=== PATIENT | female | born 1970 ===

== ENCOUNTER 2020-04-30 13:40 | Outpatient (REF) | payer OTHER, SELFPAY | END 2020-04-30 13:41 | disposition home or self-care (01) | LOC: HO.LAB 13:40 | PROVIDERS: Visit Provider Internal Medicine | DX: Z20.828 Contact with and (suspected) exposure to other viral communicable diseases (principal) | CPT/HCPCS: 87635 ==

== ENCOUNTER 2020-05-07 12:45 | Outpatient (REF) | payer OTHER, SELFPAY | END 2020-05-07 12:46 | disposition home or self-care (01) | LOC: HO.LAB 12:45 | PROVIDERS: Visit Provider Internal Medicine | DX: Z20.828 Contact with and (suspected) exposure to other viral communicable diseases (principal) | CPT/HCPCS: U0003 ==

== ENCOUNTER 2020-07-16 13:52 | Outpatient (REF) | payer OTHER, SELFPAY | END 2020-07-16 13:53 | disposition home or self-care (01) | LOC: HO.LAB 13:52 | PROVIDERS: Visit Provider Internal Medicine | DX: Z20.822 Contact with and (suspected) exposure to COVID-19 (principal) | CPT/HCPCS: 36415; C9803; U0003 ==

== ENCOUNTER 2020-08-13 10:16 | Outpatient (REF) | payer OTHER, SELFPAY ==
[2020-08-13 11:13] LABS: MANUAL DIFF FLAG NO
[2020-08-13 11:25] LABS: Basophils Absolute Auto 0.1 X10*3/uL (0.0-0.2); Basophils Percent Auto 0.6 % (0-2); Eosinophils Absolute Auto 0.2 X10*3/uL (0.0-0.4); Eosinophils Percent Auto 2.2 % (0-4); Hematocrit 46.6 % (37-47); Hemoglobin 14.6 g/dl (12.0-16.0); Imm Gran Abs Auto 0.02 X10*3/uL (0.00-0.03); Imm Gran Pct Auto 0.3 % (0.0-0.4); Lymphocytes Absolute Auto 1.9 X10*3/uL (1.2-4.9); Lymphocytes Percent Auto 24.1 % (20-40); Mean Corpuscular HGB Conc 31.3 g/dl (31.0-35.0); Mean Corpuscular Volume 89.3 fL (80-98); Mean Platelet Volume 10.7 fL (9.4-12.3); Monocytes Absolute Auto 0.7 X10*3/uL (0.1-1.2); Monocytes Percent Auto 9.1 % (2-11); Neutrophils Percent Auto 63.7 % (45-73); Platelet Count 290 X10*3/uL (160-400); Red Blood Count 5.22 X10*6/uL (4.20-5.50); Red Cell Distribution Width 13.7 % (11.0-16.0); White Blood Count 7.9 X10*3/uL (4.8-10.8)
[2020-08-13 11:37] LABS: Estimated Average Glucose 108 mg/dL; Hemoglobin A1c % 5.4 %
[2020-08-13 11:59] LABS: Alanine Aminotransferase 33 U/L (0-31); Albumin Level 4.3 g/dL (3.5-5.0); Alkaline Phosphatase 83 U/L (39-117); Anion Gap 13 (12-20); Aspartate Amino Transferase 23 U/L (5-31); Bilirubin Direct 0.2 mg/dL (0.0-0.5); Bilirubin Total 0.3 mg/dL (0.0-1.0); Blood Urea Nitrogen 18 mg/dL (9-16); Calcium 9.8 mg/dL (8.4-10.2); Carbon Dioxide 29 mmol/L (22-29); Chloride 104 mmol/L (96-108); Estimated Glomerular Filt Rate > 60; Glucose Random 90 mg/dL (60-115); Sodium 141 mmol/L (135-145); Total Protein 7.6 g/dL (6.5-8.0)
[2020-08-13 12:07] LABS: Ferritin 176 ng/mL (10-250); TSH reflex Free T4 0.85 uIU/mL (0.32-4.0)
[2020-08-13 12:28] LABS: Vitamin B12 348 pg/mL (200-900)
[2020-08-14 08:43] LABS: LDL Cholesterol Direct 61 mg/dL (<100)
[2020-08-17 22:32] LABS: Vitamin D 25-OH, D2 30 ng/mL; Vitamin D 25-OH, D3 17 ng/mL; Vitamin D 25-OH, Total 47 ng/mL (30-100)
== END 2020-08-13 10:17 | disposition home or self-care (01) ==
LOC: HO.HMGCLDS 10:16
PROVIDERS: PCP Internal Medicine; Visit Provider Internal Medicine
DX: L65.9 Nonscarring hair loss, unspecified (principal); D64.9 Anemia, unspecified; L30.9 Dermatitis, unspecified; R73.01 Impaired fasting glucose; K59.01 Slow transit constipation; I10 Essential (primary) hypertension; E03.2 Hypothyroidism due to medicaments and other exogenous substances; T50.905A Adverse effect of unspecified drugs, medicaments and biological substances, initial encounter; Y92.9 Unspecified place or not applicable; Z91.09 Other allergy status, other than to drugs and biological substances
CPT/HCPCS: 36415; 80048; 80076; 82306; 82607; 82728; 83036; 83721; 84443; 85025

== ENCOUNTER 2020-11-13 09:56 | Outpatient (REF) | payer OTHER, SELFPAY ==
[2020-11-14 01:30] LABS: CT PCR NOT DETECTED (Not Detect.); NG PCR NOT DETECTED (Not Detect.)
== END 2020-11-13 09:57 | disposition home or self-care (01) ==
LOC: HO.LAB 09:56
PROVIDERS: PCP Internal Medicine; Visit Provider Advanced Practice Midwife
DX: Z01.419 Encounter for gynecological examination (general) (routine) without abnormal findings (principal); Z11.3 Encounter for screening for infections with a predominantly sexual mode of transmission; N95.1 Menopausal and female climacteric states; N93.0 Postcoital and contact bleeding; N85.2 Hypertrophy of uterus; N95.2 Postmenopausal atrophic vaginitis; Z20.2 Contact with and (suspected) exposure to infections with a predominantly sexual mode of transmission
CPT/HCPCS: 87491; 87591

== ENCOUNTER 2020-11-27 10:52 | Outpatient (REF) | payer OTHER, SELFPAY ==
--- NOTE | ~2020-11-27 | US_ITS ---
EXAMINATION: PELVIC ULTRASOUND CLINICAL INFORMATION: Enlarged uterus COMPARISON: Previous CT of the abdomen and pelvis December 2010 TECHNIQUE: Transabdominal and transvaginal pelvic ultrasound was performed. Transvaginal exam was performed for better visualization of the uterus and ovaries. FINDINGS: The uterus is anteverted and measures 8.6 x 3.6 x 4.9 cm in dimension. There is a 2.3 x 1.5 x 2.1 cm hypoechoic lesion in the anterior uterine fundus suggestive of a fibroid. Endometrial thickness measures 7 mm. There is a heterogeneous slightly hyperechoic area in the endometrium with central feeding vessel questionable for an endometrial polyp. This measures 8 x 5 x 8 mm. The right ovary is enlarged and measures 9.6 x 6.7 x 7.2 cm. There is a 9.4 x 6.5 x 5.3 cm simple-appearing right ovarian cyst. This measured 3.8 x 6.6 x 6.5 cm in dimension on December 2010 CT scan and is slightly increased in size. The left ovary is normal-appearing and measures 1.9 x 0.9 x 1.4 cm. There is no fluid in the pelvis. US/US pelvic and transvaginal IMPRESSION: Small fundal uterine fibroid. Heterogeneous endometrium questionable for an endometrial polyp. Endometrial thickness measures 7 mm which is slightly thickened for a postmenopausal patient. 9.4 x 6.5 x 5.3 cm simple-appearing right ovarian cyst increased from previous CT scan of the abdomen and pelvis December 2010.
== END 2020-11-27 10:53 | disposition home or self-care (01) ==
LOC: HO.US 10:52
PROVIDERS: Visit Provider Advanced Practice Midwife
DX: N85.2 Hypertrophy of uterus (principal); N93.0 Postcoital and contact bleeding; N95.2 Postmenopausal atrophic vaginitis
CPT/HCPCS: 76830; 76856

== ENCOUNTER → 2020-12-18 11:33 | Outpatient (BNVA) | payer OTHER, SELFPAY | PROVIDERS: PCP Internal Medicine; Visit Provider Advanced Practice Midwife ==

== ENCOUNTER 2020-12-23 11:43 | Outpatient (REF) | payer OTHER, SELFPAY ==
[2020-12-24 09:36] LABS: CA-125 5 U/mL (<35)
== END 2020-12-23 11:44 | disposition home or self-care (01) ==
LOC: HO.LAB 11:43
PROVIDERS: Absent Provider Advanced Practice Midwife; PCP Internal Medicine; Visit Provider Obstetrics & Gynecology
DX: N83.201 Unspecified ovarian cyst, right side (principal); N84.0 Polyp of corpus uteri; D25.9 Leiomyoma of uterus, unspecified
CPT/HCPCS: 36415; 86304

== ENCOUNTER → 2020-12-27 11:05 | Outpatient (BNVA) | payer OTHER, SELFPAY | PROVIDERS: PCP Internal Medicine; Visit Provider Obstetrics & Gynecology ==

== ENCOUNTER 2021-02-11 06:19 | Outpatient (REF) | payer OTHER, SELFPAY ==
[2021-02-11 07:33] LABS: Alanine Aminotransferase 27 U/L (0-31); Alkaline Phosphatase 81 U/L (39-117); Anion Gap 11 (12-20); Aspartate Amino Transferase 21 U/L (5-31); Bilirubin Total 0.5 mg/dL (0.0-1.0); Blood Urea Nitrogen 19 mg/dL (9-16); Calcium 9.5 mg/dL (8.4-10.2); Carbon Dioxide 29 mmol/L (22-29); Chloride 108 mmol/L (96-108); Estimated Glomerular Filt Rate > 60; Glucose Random 101 mg/dL (60-115); Potassium 4.7 mmol/L (3.3-5.1); Sodium 143 mmol/L (135-145)
[2021-02-11 07:41] LABS: Hemoglobin 13.3 g/dl (12.0-16.0)
[2021-02-11 07:55] LABS: TSH reflex Free T4 1.03 uIU/mL (0.32-4.0)
== END 2021-02-11 06:20 | disposition home or self-care (01) ==
LOC: HO.LAB 06:19
PROVIDERS: PCP Internal Medicine; Visit Provider Internal Medicine
DX: E03.2 Hypothyroidism due to medicaments and other exogenous substances (principal); E66.09 Other obesity due to excess calories; F41.9 Anxiety disorder, unspecified; I10 Essential (primary) hypertension; R73.01 Impaired fasting glucose
CPT/HCPCS: 36415; 80053; 84443; 85014; 85018

== ENCOUNTER 2021-03-31 13:35 | Outpatient (REF) | payer OTHER, SELFPAY ==
--- NOTE | ~2021-03-31 | MM_ITS ---
EXAMINATION: MM SCREENING DIGITAL BREAST TOMOSYNTHESIS, BILATERAL CLINICAL INFORMATION: Screening. Asymptomatic. The lifetime risk of breast cancer based on the Tyrer-Cuzick Model is 7%. COMPARISON: Mammography: 03/29/2020, 12/22/2018, 12/01/2017, 11/18/2016 TECHNIQUE: Digital breast tomosynthesis is performed in both the craniocaudal and mediolateral oblique views along with computer-aided detection (CAD). Synthesized 2D images are generated from the tomosynthesis. FINDINGS: There are scattered areas of fibroglandular density (ACR BI-RADS breast composition Category b). There are no significant masses, abnormal calcifications, or other abnormalities. Parenchymal pattern is similar to prior exams. There is no developing density. Scattered benign round calcifications are again noted. There is an incidental oil cyst posterior 1:00 position left breast with rim calcification. No significant changes. MM/MM tomosynthesis screening BI IMPRESSION: There are no significant changes from prior study. ASSESSMENT: BI-RADS 2: Benign RECOMMENDATION: Routine annual mammography screening. This patient's information was entered into a reminder system with a target due date for their next mammogram.
== END 2021-03-31 13:36 | disposition home or self-care (01) ==
LOC: HO.MAMMO 13:35
PROVIDERS: PCP Internal Medicine; Visit Provider Internal Medicine
DX: Z12.31 Encounter for screening mammogram for malignant neoplasm of breast (principal)
CPT/HCPCS: 77063; 77067

== ENCOUNTER 2021-09-16 10:21 | Outpatient (REF) | payer OTHER, SELFPAY ==
[2021-09-16 11:42] LABS: MANUAL DIFF FLAG NO
[2021-09-16 11:56] LABS: Basophils Absolute Auto 0.1 X10*3/uL (0.0-0.2); Basophils Percent Auto 0.6 % (0-2); Eosinophils Absolute Auto 0.2 X10*3/uL (0.0-0.4); Eosinophils Percent Auto 2.1 % (0-4); Hematocrit 44.2 % (37.0-47.0); Hemoglobin 13.8 g/dl (12.0-16.0); Imm Gran Abs Auto 0.02 X10*3/uL (0.00-0.03); Imm Gran Pct Auto 0.2 % (0.0-0.4); Lymphocytes Absolute Auto 1.8 X10*3/uL (1.2-4.9); Lymphocytes Percent Auto 20.6 % (20-40); Mean Corpuscular HGB Conc 31.2 g/dl (31.0-35.0); Mean Corpuscular Hemoglobin 27.5 pg (27.0-33.0); Mean Corpuscular Volume 88.2 fL (80.0-98.0); Mean Platelet Volume 10.9 fL (9.4-12.3); Monocytes Absolute Auto 0.7 X10*3/uL (0.1-1.2); Monocytes Percent Auto 8.3 % (2-11); Neutrophils Absolute Auto 5.9 x10*3/uL (2.0-8.3); Neutrophils Percent Auto 68.2 % (45-73); Platelet Count 268 X10*3/uL (160-400); Red Blood Count 5.01 X10*6/uL (4.20-5.50); Red Cell Distribution Width 14.1 % (11.0-16.0); White Blood Count 8.7 X10*3/uL (4.8-10.8)
[2021-09-16 12:18] LABS: Alanine Aminotransferase 28 U/L (0-31); Alkaline Phosphatase 87 U/L (39-117); Anion Gap 12 (12-20); Aspartate Amino Transferase 24 U/L (5-31); Bilirubin Total 0.3 mg/dL (0.0-1.0); Blood Urea Nitrogen 15 mg/dL (9-16); Calcium 9.6 mg/dL (8.4-10.2); Carbon Dioxide 27 mmol/L (22-29); Chloride 107 mmol/L (96-108); Estimated Glomerular Filt Rate > 60; Glucose Random 100 mg/dL (60-115); Potassium 4.8 mmol/L (3.3-5.1); Sodium 141 mmol/L (135-145); Total Protein 7.2 g/dL (6.5-8.0)
[2021-09-16 12:38] LABS: TSH reflex Free T4 1.32 uIU/mL (0.32-4.0)
[2021-09-17 07:41] LABS: LDL Cholesterol Direct 53 mg/dL (<100)
== END 2021-09-16 10:22 | disposition home or self-care (01) ==
LOC: HO.HMGCLDS 10:21
PROVIDERS: PCP Internal Medicine; Visit Provider Internal Medicine
DX: Z00.01 Encounter for general adult medical examination with abnormal findings (principal); D64.9 Anemia, unspecified; F41.9 Anxiety disorder, unspecified; I10 Essential (primary) hypertension; R73.01 Impaired fasting glucose
CPT/HCPCS: 36415; 80053; 83721; 84443; 85025

== ENCOUNTER 2021-11-03 17:09 | Outpatient (REF) | payer OTHER, SELFPAY | END 2021-11-03 17:10 | disposition home or self-care (01) | LOC: HO.LNP 17:09 | PROVIDERS: Visit Provider Internal Medicine | DX: N39.0 Urinary tract infection, site not specified (principal); B95.2 Enterococcus as the cause of diseases classified elsewhere | CPT/HCPCS: 87086; 87147; 87186 ==

== ENCOUNTER 2021-12-24 11:06 | Outpatient (REF) | payer OTHER, SELFPAY ==
[2021-12-24 13:53] LABS: CT PCR NOT DETECTED (Not Detect.); NG PCR NOT DETECTED (Not Detect.)
== END 2021-12-24 11:07 | disposition home or self-care (01) ==
LOC: HO.LAB 11:06
PROVIDERS: Visit Provider Advanced Practice Midwife
DX: Z01.419 Encounter for gynecological examination (general) (routine) without abnormal findings (principal); Z20.2 Contact with and (suspected) exposure to infections with a predominantly sexual mode of transmission; Z87.440 Personal history of urinary (tract) infections
CPT/HCPCS: 81003; 87491; 87591

== ENCOUNTER 2022-03-18 14:51 | Outpatient (REF) | payer OTHER, SELFPAY ==
--- NOTE | ~2022-03-18 | XR_ITS ---
EXAMINATION: XR LUMBOSACRAL SPINE CLINICAL INFORMATION: Radiculopathy COMPARISON: Previous CT of the abdomen and pelvis December 2010 TECHNIQUE: Three views of the lumbosacral spine. FINDINGS: There is abnormal appearance of the T12 vertebral body that demonstrates slight increased sclerosis and trabeculation. When compared with previous CT from 2010 this demonstrates increased vertical striations and may represent a hemangioma. No fracture or dislocation. There is multilevel degenerative spondylosis from T11-T12 to L3-L4. There is mild disc space narrowing at L5-S1. There is lower lumbar spine facet arthritis. XR/XR lumbar spine 2-3V IMPRESSION: Abnormal appearance to the T12 vertebral body. When compared with previous CT of the abdomen and pelvis December 2010 this may represent a hemangioma. This could be further evaluated with MRI or bone scan if clinically indicated. Degenerative changes.
[2022-03-18 16:44] LABS: Appearance Urine Clear; Color Urine Yellow; Glucose Urine UA Negative (Negative); Leukocyte Esterase Urine Negative (Negative); Nitrite Urine Negative (Negative); UMIC TRIGGER UACC YES; Urine Blood Small (1+) (Negative); Urine Ketones Negative (Negative); Urine Protein Negative (Neg-Trace)
[2022-03-18 16:57] LABS: Bacteria Urine None Seen (None Seen); Hyaline Casts Urine 0-2 /LPF (0-2); Squamous Epithelial Cell Urine 0-2 /HPF (0-2); WBC Urine 0-5 /HPF (0-5)
[2022-03-18 16:59] LABS: Estimated Average Glucose 120 mg/dL; Hemoglobin A1c % 5.8 %
[2022-03-18 17:24] LABS: TSH reflex Free T4 2.63 uIU/mL (0.32-4.0)
[2022-03-18 17:33] LABS: Alanine Aminotransferase 21 U/L (0-31); Albumin Level 4.1 g/dL (3.5-5.0); Alkaline Phosphatase 89 U/L (39-117); Anion Gap 14 (12-20); Aspartate Amino Transferase 19 U/L (5-31); Bilirubin Total < 0.2 mg/dL (0.0-1.0); Blood Urea Nitrogen 23 mg/dL (9-16); Calcium 9.8 mg/dL (8.4-10.2); Carbon Dioxide 28 mmol/L (22-29); Chloride 103 mmol/L (96-108); Estimated Glomerular Filt Rate 40; Glucose Random 135 mg/dL (60-115); Potassium 3.9 mmol/L (3.3-5.1); Sodium 141 mmol/L (135-145); Total Protein 7.3 g/dL (6.5-8.0)
== END 2022-03-18 14:52 | disposition home or self-care (01) ==
LOC: HO.HMGCX 14:51
PROVIDERS: PCP Internal Medicine; Visit Provider Internal Medicine
DX: E03.2 Hypothyroidism due to medicaments and other exogenous substances (principal); I10 Essential (primary) hypertension; M54.16 Radiculopathy, lumbar region; R73.01 Impaired fasting glucose
CPT/HCPCS: 36415; 72100; 80053; 81001; 83036; 84443

== ENCOUNTER 2022-03-27 14:48 | Outpatient (REF) | payer OTHER, SELFPAY ==
[2022-03-27 16:37] LABS: Appearance Urine Clear; Color Urine Yellow; Glucose Urine UA Negative (Negative); Leukocyte Esterase Urine Trace (Negative); Nitrite Urine Negative (Negative); PH 5.5 (5.0-9.0); Specific Gravity - Urine 1.015 (1.005-1.025); UMIC TRIGGER UACC YES; Urine Blood Trace (Negative); Urine Ketones Negative (Negative); Urine Protein Negative (Neg-Trace)
[2022-03-27 16:39] LABS: Bacteria Urine None Seen (None Seen); Hyaline Casts Urine 0-2 /LPF (0-2); RBC Urine 0-2 /HPF (0-2); Squamous Epithelial Cell Urine 0-2 /HPF (0-2); WBC Urine 0-5 /HPF (0-5)
== END 2022-03-27 14:49 | disposition home or self-care (01) ==
LOC: HO.HMGCLDS 14:48
PROVIDERS: PCP Internal Medicine; Visit Provider Internal Medicine
DX: R31.9 Hematuria, unspecified (principal)
CPT/HCPCS: 81001

== ENCOUNTER 2022-04-01 13:53 | Outpatient (REF) | payer OTHER, SELFPAY ==
--- NOTE | ~2022-04-01 | MM_ITS ---
EXAMINATION: MM SCREENING DIGITAL BREAST TOMOSYNTHESIS, BILATERAL CLINICAL INFORMATION: Screening. Asymptomatic. The lifetime risk of breast cancer based on the Tyrer-Cuzick Model is 10%. COMPARISON: Mammography: 03/31/2021, 03/29/2020, 12/05/2018 TECHNIQUE: Digital breast tomosynthesis is performed in both the craniocaudal and mediolateral oblique views along with computer-aided detection (CAD). Synthesized 2D images are generated from the tomosynthesis. FINDINGS: There are scattered areas of fibroglandular density (ACR BI-RADS breast composition Category b). Parenchymal pattern is similar to prior studies and there is no developing density or interval mass or architectural abnormality. There are 2 biopsy clip marker is in upper outer left breast. There are scattered bilateral benign round and some vascular calcifications. Large benign rim calcification present posterior 1:00 left breast. The axilla are unremarkable. Skin contours are smooth. No significant changes. MM/MM tomosynthesis screening BI IMPRESSION: No mammographic evidence of malignancy. ASSESSMENT: BI-RADS 2: Benign RECOMMENDATION: Routine annual mammography screening. This patient's information was entered into a reminder system with a target due date for their next mammogram.
== END 2022-04-01 13:54 | disposition home or self-care (01) ==
LOC: HO.MAMMO 13:53
PROVIDERS: Visit Provider Internal Medicine
DX: Z12.31 Encounter for screening mammogram for malignant neoplasm of breast (principal)
CPT/HCPCS: 77063; 77067

== ENCOUNTER 2022-04-17 14:32 | Outpatient (REF) | payer OTHER, SELFPAY ==
--- NOTE | ~2022-04-17 | MR_ITS ---
EXAMINATION: MR THORACIC SPINE WITHOUT CONTRAST CLINICAL INFORMATION: 51-year-old with back pain status post Covid. Abnormal findings on previous x-rays. COMPARISON: 03/18/2022 x-rays lumbar spine. TECHNIQUE: MRI of the thoracic spine was obtained using routine sequences without contrast. FINDINGS: ALIGNMENT: The thoracic spine is anatomically aligned. No spondylolisthesis or retrolisthesis. VERTEBRAL BODIES AND BONE MARROW: Vertebral body heights are well maintained. No compression fractures are identified. Note is made of marrow signal changes in the L1 vertebral body. (There appear to be 6 lumbar-like vertebral bodies on the x-rays which accounts for the difference in numbering of this particular vertebral body.) These marrow signal changes are typical for benign vertebral hemangioma which is partially lipid-rich with some lipid-poor areas. This fills most of the vertebral body without expansile remodeling. Additionally, there is a 1.1 cm benign vertebral hemangioma within the T8 vertebral body as well. No bone marrow edema or suspicious osseous marrow replacement. DISC SPACES AND ENDPLATES: The intervertebral disc space heights and signal are relatively well maintained throughout the thoracic spine. There are mild degrees of anterolateral spondylosis asymmetric to the right between T3-T4 and L1-L2 inclusive. Endplates appear intact. PARASPINAL SOFT TISSUES: The paravertebral soft tissues are grossly unremarkable in appearance. No paravertebral soft tissue masses are identified. SPINAL CORD: The thoracic spinal cord is normal in morphology, caliber and signal intensity throughout. The conus terminates at the L2 level. SPINAL LEVELS: C7-T1: Unremarkable. T1-T2: Small posterior disc-osteophyte complex at this level with slight indentation of the ventral thecal sac without cord impingement or canal stenosis. T2-T3: Moderate right-sided facet arthropathy at this level with moderate right-sided neural foraminal stenosis. T3-T4: Unremarkable. T4-T5: Unremarkable. T5-T6: Unremarkable. T6-T7: Tiny central disc protrusion with minimal indentation of the ventral thecal sac without cord impingement or canal stenosis. T7-T8: Unremarkable. T8-T9: Unremarkable. T9-T10: Unremarkable. T10-T11: Unremarkable. T11-T12: Bdfi-ny-rsbsgyxu left-sided facet arthropathy noted without significant neural foraminal stenosis or canal stenosis. Ligamentum flavum thickening and/or calcification on the left at this level. T12-L1: Minimal left paramedian disc protrusion without canal or foraminal stenosis. L1-L2: Mild left paramedian disc protrusion without canal or foraminal stenosis. MR/MR thoracic spine wo con IMPRESSION: 1. Large benign vertebral hemangioma in the L1 vertebral body noted which fills most of the vertebral body without expansile remodeling. Smaller benign vertebral hemangioma seen in the T8 vertebral body. 2. Mild multilevel thoracic spondylosis, as described above, with small disc-osteophyte complex at T1-T2, tiny central disc protrusion at T6-T7, left paramedian disc protrusions at T12-L1 and L1-L2 without cord impingement or canal stenosis. 3. Jrry-ux-aatjfdbh left-sided facet arthropathy at T11-T12 with left-sided ligamentum flavum thickening and/or calcification without significant canal or foraminal stenosis. Right-sided facet arthropathy at T2-T3 with moderate right-sided neural foraminal stenosis.
== END 2022-04-17 14:33 | disposition home or self-care (01) ==
LOC: HO.MRI 14:32
PROVIDERS: Visit Provider Internal Medicine
DX: R93.7 Abnormal findings on diagnostic imaging of other parts of musculoskeletal system (principal)
CPT/HCPCS: 72146

== ENCOUNTER 2022-04-27 14:06 | Outpatient (REF) | payer OTHER, SELFPAY ==
[2022-04-27 16:21] LABS: Urine Cytology See Pathology rpt
== END 2022-04-27 14:07 | disposition home or self-care (01) ==
LOC: HO.LAB 14:06
PROVIDERS: Visit Provider Urology
DX: R35.0 Frequency of micturition (principal); R31.29 Other microscopic hematuria
CPT/HCPCS: 51798; 88112

== ENCOUNTER 2022-10-12 07:16 | Outpatient (REF) | payer OTHER, SELFPAY ==
[2022-10-12 07:25] LABS: MANUAL DIFF FLAG NO
[2022-10-12 07:44] LABS: Basophils Absolute Auto 0.1 X10*3/uL (0.0-0.2); Basophils Percent Auto 0.7 % (0-2); Eosinophils Absolute Auto 0.1 X10*3/uL (0.0-0.4); Eosinophils Percent Auto 1.6 % (0-4); Hematocrit 45.3 % (37.0-47.0); Hemoglobin 14.6 g/dl (12.0-16.0); Imm Gran Abs Auto 0.02 X10*3/uL (0.00-0.03); Imm Gran Pct Auto 0.2 % (0.0-0.4); Lymphocytes Absolute Auto 2.4 X10*3/uL (1.2-4.9); Lymphocytes Percent Auto 27.9 % (20-40); Mean Corpuscular HGB Conc 32.2 g/dl (31.0-35.0); Mean Corpuscular Hemoglobin 27.9 pg (27.0-33.0); Mean Corpuscular Volume 86.6 fL (80.0-98.0); Mean Platelet Volume 10.7 fL (9.4-12.3); Monocytes Absolute Auto 0.7 X10*3/uL (0.1-1.2); Monocytes Percent Auto 7.7 % (2-11); Neutrophils Absolute Auto 5.4 x10*3/uL (2.0-8.3); Neutrophils Percent Auto 61.9 % (45-73); Platelet Count 287 X10*3/uL (160-400); Red Blood Count 5.23 X10*6/uL (4.20-5.50); Red Cell Distribution Width 13.9 % (11.0-16.0); White Blood Count 8.7 X10*3/uL (4.8-10.8)
[2022-10-12 07:53] LABS: Estimated Average Glucose 117 mg/dL; Hemoglobin A1C 150.6956 umol/L; Hemoglobin A1c % 5.7 %
[2022-10-12 08:27] LABS: Alanine Aminotransferase 24 U/L (0-31); Albumin Level 4.2 g/dL (3.5-5.0); Alkaline Phosphatase 86 U/L (39-117); Anion Gap 13 (12-20); Aspartate Amino Transferase 23 U/L (5-31); Bilirubin Total 0.7 mg/dL (0.0-1.0); Blood Urea Nitrogen 15 mg/dL (9-16); Calcium 9.6 mg/dL (8.4-10.2); Carbon Dioxide 27 mmol/L (22-29); Chloride 108 mmol/L (96-108); Cholesterol 136 mg/dL; Estimated Glomerular Filt Rate 57; Glucose Fasting 102 mg/dL (60-99); HDL Cholesterol 42 mg/dL; LDL Cholesterol Calculated 72 mg/dl; Potassium 4.9 mmol/L (3.3-5.1); Sodium 143 mmol/L (135-145); Total Protein 7.2 g/dL (6.5-8.0); Triglycerides 114 mg/dL
[2022-10-12 08:28] LABS: Appearance Urine Turbid; Color Urine Dark Yellow; Glucose Urine UA Negative (Negative); Leukocyte Esterase Urine Small (1+) (Negative); Nitrite Urine Negative (Negative); PH 5.5 (5.0-9.0); Specific Gravity - Urine 1.025 (1.005-1.025); UMIC TRIGGER UACC YES; Urine Blood Moderate (2+) (Negative); Urine Ketones Trace mg/dL (Negative); Urine Protein Trace mg/dL (Neg-Trace)
[2022-10-12 08:37] LABS: Bacteria Urine None Seen (None Seen); RBC Urine 0-2 /HPF (0-2); UACC Culture Trigger YES
[2022-10-12 08:37] LABS: TSH reflex Free T4 1.59 uIU/mL (0.32-4.0)
[2022-10-14 03:49] LABS: Thyroglobulin Antibodies <1 IU/mL (< or = 1)
== END 2022-10-12 07:17 | disposition home or self-care (01) ==
LOC: HO.LAB 07:16
PROVIDERS: PCP Internal Medicine; Visit Provider Internal Medicine
DX: Z00.01 Encounter for general adult medical examination with abnormal findings (principal); I10 Essential (primary) hypertension; E03.2 Hypothyroidism due to medicaments and other exogenous substances; R73.01 Impaired fasting glucose; R31.9 Hematuria, unspecified
CPT/HCPCS: 36415; 80053; 80061; 81001; 83036; 84443; 85025; 86800; 87086

== ENCOUNTER 2023-02-16 11:11 | Outpatient (AMB) | payer OTHER, SELFPAY ==
--- NOTE | 2023-02-16 11:49 | MHC.OFFWIV ---
Intake Vital Signs 02/16/23 11:54 Height 5 ft 4 in Weight 184 lb BMI 31.6 BP 104/62 Blood Pressure Location Lt brachial Position Sitting Pulse 67 Pulse Source Pulse Oximeter Temp 97.2 F Temp Source Temporal Artery Scan Pulse Oximetry (%) 97 Oxygen Delivery Method Room Air Intake Visit Reasons: ESt/uti? Intake Note: Pt is here c/o frequent urination and burning sensation when she urinates. Patient Tobacco Use Status: Never used Tobacco Allergies No Known Allergies Allergy (Verified 02/16/23 11:54) Do you need a note to return to daycare/school/sports/work: No HPI ESt/uti? HPI Details Patient presents today with a 2 day history urinary frequency and burning. Reports feeling some chills this morning, however denies fever. Denies flank pain. Denies any vaginal symptoms or STI risk. [facility] Medical History Right ovarian cyst Surgical History No pertinent past surgical history Family History Father Colon cancer Mother HTN (hypertension) Diabetes mellitus Maternal Aunt Colon cancer Social History Housing: House Alcohol intake: current Alcohol intake frequency: holidays/special occasions only Patient Tobacco Use Status: Never used Tobacco e-Cigarette/Vaping Use: Never Used Current occupational status: employed Cognitive needs: No Hearing needs: No Vision needs: Yes Review of Systems Const All systems reviewed & are unremarkable except as noted in HPI and below Physical Exam Vital Signs: Last Vital Signs Temp 97.2 F 02/16/23 11:54 Pulse 67 02/16/23 11:54 BP 104/62 02/16/23 11:54 Pulse Ox 97 02/16/23 11:54 Oxygen Delivery Method Room Air 02/16/23 11:54 BMI result Body Mass Index 31.6 Const General: cooperative, healthy appearing, comfortable and no acute distress Resp Effort & Inspection: normal respiratory effort and able to speak in complete sentences General: Yes bladder normal to palpation and Yes no CVA tenderness Bimanual exam- vagina & uterus: bladder normal to palpation Back/Spine/Pelvis Back: no CVA tenderness Skin General skin exam: no rashes or lesions noted Extrem General: Yes capillary refill normal and Yes no clubbing, cyanosis or edema Psych Appearance: grossly normal Mental Status: mental status grossly normal Speech and movement: Normal speech and movement present Results AMB Urinalysis, Automated UA Leukoctes 15 Ewa/uL Last Edit by Mandi Baker [facility] on 02/16/23 11:51 UA Nitrite Negative Last Edit by Mandi Baker [facility] on 02/16/23 11:51 UA Urobilinogen 0.2 mg/dL Last Edit by Mandi Baker [facility] on 02/16/23 11:51 UA Protein 0 mg/dL Last Edit by Mandi Baker [facility] on 02/16/23 11:51 UA pH 6.0 Last Edit by Mandi Baker [facility] on 02/16/23 11:51 UA Blood 80 Riccardo/uL Last Edit by Mandi Baker [facility] on 02/16/23 11:51 UA Specific Wayne 1.010 Last Edit by Mandi Baker [facility] on 02/16/23 11:51 UA Ketone Negative Last Edit by Mandi Baker [facility] on 02/16/23 11:51 UA Bilirubin 0 mg/dL Last Edit by Mandi Baker [facility] on 02/16/23 11:51 UA Glucose 0 mg/dL Last Edit by Mandi Baker [facility] on 02/16/23 11:51 Results Reviewed Results Reviewed: Laboratory Last Values Urine pH (Auto) 6.0 02/16/23 11:49 Specific Wayne (Auto) 1.010 02/16/23 11:49 Urine Protein (Auto) 0 mg/dL 02/16/23 11:49 Glucose (UA)(Auto) 0 mg/dL 02/16/23 11:49 Urine Ketones (Auto) Negative 02/16/23 11:49 Urine Blood (Auto) 80 Riccardo/uL 02/16/23 11:49 Urine Nitrite (Auto) Negative 02/16/23 11:49 Urine Bilirubin (Auto) 0 mg/dL 02/16/23 11:49 Urine Urobilinogen (Auto) 0.2 mg/dL 02/16/23 11:49 Leukocyte Esterase (Auto) 15 Ewa/uL 02/16/23 11:49 Assessment & Plan Assessment & Plan (1) UTI (urinary tract infection): Code(s): N39.0 - Urinary tract infection, site not specified Qualifiers: Urinary tract infection type: acute cystitis Hematuria presence: with hematuria Qualified Code(s): N30.01 - Acute cystitis with hematuria Plan: Macrobid 5 days for UTI. Advised to increase hydration. May take Tylenol as needed. If she does not improve, or new symptoms develop, she should return to the clinic for further evaluation. She does have a automatic pad making machine operator visit in a couple of weeks. Orders: Orders AMB Urinalysis Automated Today Z13.9 - Encounter for screening, unspecified Dante Hackett MD Medications: New nitrofurantoin monohyd/m-cryst 100 mg (Macrobid) must administer with a meal/food 100 mg PO Q12H 5 days 10 caps 0RF N30.01 - Acute cystitis with hematuria ANGELES Suarez Coding Level of Care Code Est Pt Level 3 (25034) Diagnoses UTI (urinary tract infection) N30.01 Urinary tract infection type: acute cystitis Hematuria presence: with hematuria
[2023-02-16 11:54] VITALS: BP 104/62; PULSE 67; TEMP 36.2; O2SAT 97; BMI 31.6
== END 2023-02-16 12:12 | disposition home or self-care (01) ==
PROVIDERS: PCP Internal Medicine; Visit Provider Nurse Practitioner Family
DX: N30.01 Acute cystitis with hematuria (principal)
CPT/HCPCS: 81003; 99213

== ENCOUNTER 2023-03-19 14:34 | Outpatient (REF) | payer OTHER, SELFPAY ==
[2023-03-20 12:50] LABS: BV Int Neg Control Negative (Negative); BV Int Pos Control Positive (Positive)
[2023-03-24 07:28] LABS: HPV mRNA E6/E7 rflx Not Detected (Not Detected)
== END 2023-03-19 14:35 | disposition home or self-care (01) ==
LOC: HO.LNP 14:34
PROVIDERS: PCP Internal Medicine; Visit Provider Advanced Practice Midwife
DX: Z01.419 Encounter for gynecological examination (general) (routine) without abnormal findings (principal); Z11.51 Encounter for screening for human papillomavirus (HPV)
CPT/HCPCS: 87480; 87510; 87624; 87660; 88142

== ENCOUNTER 2023-03-19 14:34 | Outpatient (AMB) | payer OTHER, SELFPAY ==
[2023-03-19 14:37] VITALS: BP 116/70; BMI 29.2
--- NOTE | 2023-03-19 14:37 | MHC.OFFVIS ---
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 Scribed for SIMIN Abel by Cecille Gregg special forces medical sergeant, on 03/19/2023 at 3:00 pm EST Compliance Counsel Required: Yes Compliance Counsel Language: Fabric Designer Name: Maddy BEDOYA Information Interpreted: non-clinical & clinical Special Procedure Tech: Special Procedure Tech Present (Maddy BEDOYA) Accompanied by: Self / Same As Patient Allergies No Known Allergies Allergy (Verified 03/19/23 14:44) Post menopausal: Yes HPI HPI Comments History of Present Illness Details She is a postmenopausal woman presenting for annual exam. Doing well with no electroformer concerns. She attempts to eat a healthy diet including Calcium and Vitamin D. She stays active with exercise. Not currently sexually active, recently split from . Denies vaginal itching and irritation. STD screening offered; she accepts. Last pap smear 2018. Last mammogram 03/12/22. UTD on colonoscopy. 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 Sexually active: No Sexual orientation: Straight/Heterosexual Gender identity: Female Cognitive needs: No Hearing needs: No Vision needs: Yes Female Reproductive History Menstrual Total pregnancies: 2 Full term: 2 Number of Living Children: 2 Date of last pap smear: 09/07/18 Date of Mammogram: 03/12/22 Review of Systems Const All systems reviewed & are unremarkable except as noted in HPI and below Physical Exam Vital Signs: Last Vital Signs BP 116/70 03/19/23 14:37 BMI result Body Mass Index 29.2 Const General: cooperative, healthy appearing, no acute distress, well developed and alert Orientation/consciousness: patient oriented x3 HEENT Head: Yes normal to inspection Eyes General: appearance normal, both eyes and all related structures Neck Neck: Yes normal visual inspection Thyroid: Thyroid normal Chest Chest palpation & inspection: normal inspection of the chest Breast/axilla inspection: normal inspection of the breasts (no puckering, dimpling, peau de orange, retraction, discharge, masses) Breast/axilla palpation: normal palpation of the breasts Resp Effort & Inspection: normal respiratory effort GI Inspection: Yes normal to inspection Palpation (GI): Soft to palpation Rectal Exam - Female: deferred General: Yes bladder normal to palpation External Female Exam: normal external appearance and normal appearance of the urethra Speculum Exam - Vagina: normal appearance of the vagina, normal palpation and normal vaginal discharge Speculum Exam - Cervix: normal appearance of the cervix and normal palpation Bimanual exam- vagina & uterus: normal bimanual exam, normal palpation, uterine size normal, bladder normal to palpation and normal palpation Bimanual Exam- Adnexa, other: normal adnexae and no masses Skin General skin exam: no rashes or lesions noted Neuro General: patient oriented x3 Cognition (Neuro): normal cognition Extrem General: Yes normal to inspection Psych Attitude: cooperative Thought process: Normal thought process present Assessment & Plan Assessment & Plan (1) Encounter for well woman exam: Code(s): Z01.419 - Encounter for gynecological examination (general) (routine) without abnormal findings Plan: Discussed: Current recommendations for pap smears per ASCCP guidelines. Breast awareness and periodic self breast exams. Encouraged yearly mammograms. Maintaining a healthy lifestyle including a well balanced diet including Calcium and Vitamin D and routine exercise. Contact office with any PMB. Encouraged patient portal. All of her questions and concerns were addressed to the best of my ability. RTO in one year for AG. (2) Potential exposure to STD: Code(s): Z20.2 - Contact with and (suspected) exposure to infections with a predominantly sexual mode of transmission Orders: Orders Hepatitis C Antibody Today Z20.2 - Contact with and (suspected) exposure to infections with a predominantly sexual mode of transmission Hepatitis B Core Antibody Today Z20.2 - Contact with and (suspected) exposure to infections with a predominantly sexual mode of transmission HIV Ab/Ag Today Z20.2 - Contact with and (suspected) exposure to infections with a predominantly sexual mode of transmission Syphilis Screen Today Z20.2 - Contact with and (suspected) exposure to infections with a predominantly sexual mode of transmission Pap Smear Today Z01.419 - Encounter for gynecological examination (general) (routine) without abnormal findings CT NG by PCR Today Z01.419 - Encounter for gynecological examination (general) (routine) without abnormal findings Bacterial Vaginosis Panel Today Z01.419 - Encounter for gynecological examination (general) (routine) without abnormal findings Coding Level of Care Code Est Pt Prev Care 40-64y(05650) Diagnoses Encounter for well woman exam Z01.419 Potential exposure to STD Z20.2
== END 2023-03-19 15:03 | disposition home or self-care (01) ==
PROVIDERS: PCP Internal Medicine; Visit Provider Advanced Practice Midwife
DX: Z01.419 Encounter for gynecological examination (general) (routine) without abnormal findings (principal); Z20.2 Contact with and (suspected) exposure to infections with a predominantly sexual mode of transmission
CPT/HCPCS: 99396

== ENCOUNTER 2023-03-19 15:10 | Outpatient (REF) | payer OTHER, SELFPAY ==
[2023-03-19 20:56] LABS: CT PCR NOT DETECTED (Not Detect.); NG PCR NOT DETECTED (Not Detect.)
[2023-03-20 03:57] LABS: Syphilis Screen Nonreactive (Nonreactive)
[2023-03-20 04:07] LABS: HIV AB/AG Nonreactive (Nonreactive); HIV Num 1 0.06 S/CO (0.00-0.99); Hepatitis B Core Antibody Nonreactive (Nonreactive); ~HepC Num1 0.07 S/CO (0.00-0.79); ~Hepatitis C Antibody Nonreactive (Nonreactive)
== END 2023-03-19 15:11 | disposition home or self-care (01) ==
LOC: HO.LAB 15:10
PROVIDERS: PCP Internal Medicine; Visit Provider Advanced Practice Midwife
DX: Z01.419 Encounter for gynecological examination (general) (routine) without abnormal findings (principal); Z11.4 Encounter for screening for human immunodeficiency virus [HIV]; Z20.2 Contact with and (suspected) exposure to infections with a predominantly sexual mode of transmission
CPT/HCPCS: 0353U; 86704; 86780; 86803; 87389

== ENCOUNTER 2023-04-07 14:01 | Outpatient (REF) | payer OTHER, SELFPAY ==
--- NOTE | ~2023-04-07 | MM_ITS ---
EXAMINATION: MM SCREENING DIGITAL BREAST TOMOSYNTHESIS, BILATERAL CLINICAL INFORMATION: Screening. Asymptomatic. COMPARISON: Mammography: This study is compared with prior exams dating back to 2019. TECHNIQUE: Digital breast tomosynthesis is performed in both the craniocaudal and mediolateral oblique views along with computer-aided detection (CAD). Synthesized 2D images are generated from the tomosynthesis. FINDINGS: There are scattered areas of fibroglandular density (ACR BI-RADS breast composition Category b). There are no significant masses, abnormal calcifications, or other abnormalities. There are 2 tissue markers in the upper outer quadrant of the left breast from prior benign percutaneous biopsies. In the same region, there are benign calcifications manifest as oil cysts. MM/MM tomosynthesis screening BI IMPRESSION: No mammographic evidence of malignancy. ASSESSMENT: BI-RADS BI-RADS 2 - Benign Findings RECOMMENDATION: Routine annual mammography screening. 1 year F/U This examination should not preclude the clinical evaluation of a suspicious palpable abnormality. This patient's information was entered into a reminder system with a target due date for their next mammogram.
== END 2023-04-07 14:02 | disposition home or self-care (01) ==
LOC: HO.MAMMO 14:01
PROVIDERS: PCP Internal Medicine; Visit Provider Internal Medicine
DX: Z12.31 Encounter for screening mammogram for malignant neoplasm of breast (principal)
CPT/HCPCS: 77063; 77067

== ENCOUNTER → 2023-04-07 14:30 | Outpatient (BNV) | payer OTHER, SELFPAY | PROVIDERS: PCP Internal Medicine; Visit Provider Radiology Diagnostic Radiology | DX: Z12.31 Encounter for screening mammogram for malignant neoplasm of breast (principal) | CPT/HCPCS: 77063; 77067 ==

== ENCOUNTER 2023-04-23 10:54 | Outpatient (AMB) | payer OTHER, SELFPAY ==
[2023-04-23 11:03] VITALS: BP 106/78; PULSE 71; O2SAT 96; BMI 28.4
--- NOTE | 2023-04-23 11:03 | MHC.PC.OV ---
Vital Signs 04/23/23 11:03 Height 5 ft 4 in Weight 165 lb 6 oz BMI 28.4 BP 106/78 Blood Pressure Location Lt brachial Position Sitting Pulse 71 Pulse Source Pulse Oximeter Pulse Oximetry (%) 96 Oxygen Delivery Method Room Air Intake Visit Reasons: 4 month follow up HTN Allergies No Known Allergies Allergy (Verified 04/23/23 11:06) Medication List - Last Reconciled 04/23/23 by Priya Cortez MD levothyroxine 100 mcg PO DAILY 90 days losartan 25 mg PO DAILY Tobacco use date assessed: 04/23/23 Dental Screening Dental Screen Date: 04/23/23 Did you have a dental visit in the last 12 months?: Yes Did you have a dental problem in the last 6 months where you did not have access to dental care?: No Was dental information given to patient?: Patient has dentist HPI 4 month follow up HTN HPI Details Patient is 52-year-old female came in today with her friend today who is translating for the patient Patient has been going through emotional crisis as her has left her for another woman Patient says that she has been for 39 years, and have 2 grown children 36 and 34 years old Currently she is alone at home but she has a support of her friend who is here with her Patient does not want to see a therapist but she would like to be started on medication Patient says that it has happened before as well similar situation At that time she was given Xanax and that helped her. Currently she is feeling very emotional and crying all the time and is not able to sleep at night. She said that she was given other medications also but she had side effect but she does not remember the name of those medications at this time. I have sent Xanax 0.25 mg she may take 1 or 2 at night She is also due for labs Patient is taking levothyroxine 100 mcg for hypothyroidism And losartan 25 mg for hypertension She also have impaired fasting sugar Last time she had labs was October of this year Patient has developed varicosities right thigh area which is causing pain and discomfort She is requesting if she can see a vascular specialist, order placed. 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 How often do you have a drink containing alcohol?: Never 3. How often do you have six or more drinks on one occasion?: Never Total Score: 0 Score Reviewed/Action Taken: Yes PHI-7 AMB Questionnaire PHI-7 Date PHI - 7 assessed: 09/16/21 Source: Developed by Drs. Bo Chowdhury, Mikayla Rizvi, Sammy Peñaloza and colleagues, with an educational madison from [employer]. Review of Systems Const Denies chills and Denies fever(s) ENT Denies epistaxis and Denies nasal discharge Card Denies chest pain Resp Denies chest congestion, Denies cough and Denies hemoptysis GI Denies diarrhea and Denies nausea Skin/Breast Denies rash Neuro Reports no additional complaints Psych Reports no additional complaints Endo Reports no additional complaints Physical exam (Primary Care) Vital Signs: Last Vital Signs Pulse 71 04/23/23 11:03 BP 106/78 04/23/23 11:03 Pulse Ox 96 04/23/23 11:03 Oxygen Delivery Method Room Air 04/23/23 11:03 BMI result Body Mass Index 28.4 Tobacco/Smoking Status: Tobacco use Status Tobacco use date assessed 04/23/23 04/23/23 11:07 Patient Tobacco Use Status Never used Tobacco 04/23/23 11:07 e-Cigarette/Vaping Use Never Used 04/23/23 11:07 Thrive Assessment: Date of Thrive Assessment Date Thrive assessed 09/16/21 04/23/23 11:07 Const General: cooperative, comfortable and no acute distress Orientation/consciousness: patient oriented x3 HENMT Head: Yes normocephalic Eyes General: appearance normal, both eyes and all related structures Neck Neck: Yes supple Resp Effort & Inspection: normal respiratory effort, no cough and no stridor Cardio Rhythm: regular rhythm Heart sounds: S1 normal heart sound present and S2 normal heart sound present Skin General skin exam: turgor normal Neuro General: patient oriented x3, tone normal and moves all extremities Extrem Other: Large varicosities right thigh area medial aspect Right lower extremity: no edema Left lower extremity: no edema Assessment and Plan Assessment & Plan (1) Depression, major, single episode, moderate: Code(s): F32.1 - Major depressive disorder, single episode, moderate (2) Varicose veins of right calf: Code(s): I83.91 - Asymptomatic varicose veins of right lower extremity (3) Emotional crisis, acute reaction to stress: Code(s): F43.0 - Acute stress reaction (4) Hypertension, essential: Code(s): I10 - Essential (primary) hypertension (5) Impaired fasting blood sugar: Code(s): R73.01 - Impaired fasting glucose (6) Difficulty sleeping: Code(s): G47.9 - Sleep disorder, unspecified (7) Other specified hypothyroidism: Code(s): E03.8 - Other specified hypothyroidism Plan Patient is 52-year-old female came in today with her friend today who is translating for the patient Patient has been going through emotional crisis as her has left her for another woman Patient says that she has been for 39 years, and have 2 grown children 36 and 34 years old Currently she is alone at home but she has a support of her friend who is here with her Patient does not want to see a therapist but she would like to be started on medication Patient says that it has happened before as well similar situation At that time she was given Xanax and that helped her. Currently she is feeling very emotional and crying all the time and is not able to sleep at night. She said that she was given other medications also but she had side effect but she does not remember the name of those medications at this time. I have sent Xanax 0.25 mg she may take 1 or 2 at night She is also due for labs Patient is taking levothyroxine 100 mcg for hypothyroidism And losartan 25 mg for hypertension She also have impaired fasting sugar Last time she had labs was October of this year Patient has developed varicosities right thigh area which is causing pain and discomfort She is requesting if she can see a vascular specialist, order placed. Follow-up 2 weeks Orders: Orders Comprehensive Met. Panel Today E03.8 - Other specified hypothyroidism, I10 - Essential (primary) hypertension, R73.01 - Impaired fasting glucose TSH reflex Free T4 6 Months E03.8 - Other specified hypothyroidism, I10 - Essential (primary) hypertension, R73.01 - Impaired fasting glucose, Z00.01 - Encounter for general adult medical examination with abnormal findings Comprehensive [place]. Panel Fast Today E03.8 - Other specified hypothyroidism, I10 - Essential (primary) hypertension, R73.01 - Impaired fasting glucose, Z00.01 - Encounter for general adult medical examination with abnormal findings Lipid Panel Today E03.8 - Other specified hypothyroidism, I10 - Essential (primary) hypertension, R73.01 - Impaired fasting glucose, Z00.01 - Encounter for general adult medical examination with abnormal findings Hemoglobin A1c Today E03.8 - Other specified hypothyroidism, I10 - Essential (primary) hypertension, R73.01 - Impaired fasting glucose, Z00.01 - Encounter for general adult medical examination with abnormal findings TSH reflex Free T4 Today E03.8 - Other specified hypothyroidism, I10 - Essential (primary) hypertension, R73.01 - Impaired fasting glucose Complete Blood Count Auto Diff Today E03.8 - Other specified hypothyroidism, I10 - Essential (primary) hypertension, R73.01 - Impaired fasting glucose, Z00.01 - Encounter for general adult medical examination with abnormal findings Referrals Vascular Surgery Referral I83.91 - Asymptomatic varicose veins of right lower extremity Medications: New alprazolam (Xanax) 0.25 mg PO BEDTIME PRN 30 tabs 0RF sleep 30 days Coding Level of Care Code Est Pt Level 5 (64882) Diagnoses Depression, major, single episode, moderate F32.1 Varicose veins of right calf I83.91 Emotional crisis, acute reaction to stress F43.0 Hypertension, essential I10 Impaired fasting blood sugar R73.01 Difficulty sleeping G47.9 Other specified hypothyroidism E03.8 Comment
== END 2023-04-23 11:34 | disposition home or self-care (01) ==
LOC: HO.HMGC 10:54
PROVIDERS: PCP Internal Medicine; Visit Provider Internal Medicine
DX: F32.1 Major depressive disorder, single episode, moderate (principal); I83.91 Asymptomatic varicose veins of right lower extremity; F43.0 Acute stress reaction; I10 Essential (primary) hypertension; R73.01 Impaired fasting glucose; G47.9 Sleep disorder, unspecified; E03.8 Other specified hypothyroidism
CPT/HCPCS: 99214

== ENCOUNTER 2023-04-30 05:55 | Outpatient (REF) | payer OTHER, SELFPAY ==
[2023-04-30 06:06] LABS: MANUAL DIFF FLAG NO
[2023-04-30 07:16] LABS: Basophils Absolute Auto 0.1 X10*3/uL (0.0-0.2); Basophils Percent Auto 0.7 % (0-2); Eosinophils Absolute Auto 0.1 X10*3/uL (0.0-0.4); Eosinophils Percent Auto 1.7 % (0-4); Hematocrit 43.7 % (37.0-47.0); Hemoglobin 14.1 g/dl (12.0-16.0); Imm Gran Abs Auto 0.02 X10*3/uL (0.00-0.03); Imm Gran Pct Auto 0.3 % (0.0-0.4); Lymphocytes Absolute Auto 1.7 X10*3/uL (1.2-4.9); Lymphocytes Percent Auto 21.7 % (20-40); Mean Corpuscular HGB Conc 32.3 g/dl (31.0-35.0); Mean Corpuscular Hemoglobin 28.3 pg (27.0-33.0); Mean Corpuscular Volume 87.8 fL (80.0-98.0); Mean Platelet Volume 11.2 fL (9.4-12.3); Monocytes Absolute Auto 0.6 X10*3/uL (0.1-1.2); Monocytes Percent Auto 8.2 % (2-11); Neutrophils Absolute Auto 5.1 x10*3/uL (2.0-8.3); Neutrophils Percent Auto 67.4 % (45-73); Platelet Count 242 X10*3/uL (160-400); Red Blood Count 4.98 X10*6/uL (4.20-5.50); Red Cell Distribution Width 13.5 % (11.0-16.0); White Blood Count 7.6 X10*3/uL (4.8-10.8)
[2023-04-30 07:28] LABS: Estimated Average Glucose 100 mg/dL; Hemoglobin A1c % 5.1 % (<6.0)
[2023-04-30 07:54] LABS: Alanine Aminotransferase 13 U/L (0-31); Albumin Level 4.1 g/dL (3.5-5.0); Alkaline Phosphatase 72 U/L (39-117); Anion Gap 14 (12-20); Aspartate Amino Transferase 18 U/L (5-31); Bilirubin Total 0.6 mg/dL (0.0-1.0); Blood Urea Nitrogen 16 mg/dL (9-16); Calcium 10.2 mg/dL (8.4-10.2); Carbon Dioxide 26 mmol/L (22-29); Chloride 105 mmol/L (96-108); Cholesterol 117 mg/dL (<200); Estimated Glomerular Filt Rate > 60; Glucose Fasting 83 mg/dL (60-99); Glucose Random 81 mg/dL (60-115); HDL Cholesterol 51 mg/dL (>40); LDL Cholesterol Calculated 51 mg/dL (<100); Potassium 4.4 mmol/L (3.3-5.1); Sodium 141 mmol/L (135-145); Total Protein 7.2 g/dL (6.5-8.0); Triglycerides 75 mg/dL (<150)
== END 2023-04-30 05:56 | disposition home or self-care (01) ==
LOC: HO.LAB 05:55
PROVIDERS: PCP Internal Medicine; Visit Provider Internal Medicine
DX: Z00.01 Encounter for general adult medical examination with abnormal findings (principal); E03.8 Other specified hypothyroidism; R73.01 Impaired fasting glucose; I10 Essential (primary) hypertension
CPT/HCPCS: 36415; 80053; 80061; 83036; 84443; 85025

== ENCOUNTER 2023-06-16 11:07 | Outpatient (AMB) | payer OTHER, SELFPAY ==
[2023-06-16 11:13] VITALS: BP 108/72; PULSE 72; O2SAT 100; BMI 27.4
--- NOTE | 2023-06-16 11:13 | AM.OFFWIN_ITS ---
Intake Vital Signs 06/16/23 11:13 Height 5 ft 4 in Weight 159 lb 6 oz BMI 27.4 BP 108/72 Blood Pressure Location Rt brachial Pulse 72 Pulse Source Pulse Oximeter Pulse Oximetry (%) 100 Oxygen Delivery Method Room Air Intake Visit Reasons: EST/uti ([phone]) Patient Tobacco Use Status: Never used Tobacco Allergies No Known Allergies Allergy (Verified 06/16/23 11:13) Medication List - Last Reconciled 06/16/23 by Priya Cortez MD alprazolam (Xanax) 0.25 mg PO BEDTIME PRN 30 days levothyroxine 100 mcg PO DAILY 90 days losartan 25 mg PO DAILY Do you need a note to return to daycare/school/sports/work: No HPI EST/uti ([phone]) HPI Details Patient is a 53-year-old female came in today to be evaluated for possible bladder infection Patient has been having symptoms for the past 3 days, dysuria and frequency Review system: There is no fever chills no headache shortness of breath She is having suprapubic discomfort. UA shows signs of infection along with some blood I am treating her with Macrobid b.i.d. for 5 days I have also sent Diflucan tablet as patient is prone to develop yeast infection. [facility], [facility] Medical History Right ovarian cyst Surgical History S/P removal of right ovary Family History Father Colon cancer Mother HTN (hypertension) Diabetes mellitus Maternal Aunt Colon cancer Social History Household Members: None Housing: House Alcohol intake: current Alcohol intake frequency: holidays/special occasions only Patient Tobacco Use Status: Never used Tobacco e-Cigarette/Vaping Use: Never Used Current occupational status: employed Current occupation: [employer] Sexual orientation: Straight/Heterosexual Gender identity: Female Cognitive needs: No Hearing needs: No Vision needs: Yes Review of Systems Const All systems reviewed & are unremarkable except as noted in HPI and below Physical Exam Vital Signs: Last Vital Signs Pulse 72 06/16/23 11:13 BP 108/72 12/13/23 11:13 Pulse Ox 100 06/16/23 11:13 Oxygen Delivery Method Room Air 06/16/23 11:13 BMI result Body Mass Index 27.4 Const General: no acute distress Orientation/consciousness: patient oriented x3 Eyes General: appearance normal, both eyes and all related structures Resp Effort & Inspection: normal respiratory effort and able to speak in complete sentences Auscultation: clear to auscultation bilaterally Cardio Other: S1 S2 GI Other: Mild suprapubic discomfort present General: Yes no CVA tenderness Back/Spine/Pelvis Back: no CVA tenderness Neuro General: patient oriented x3 Psych Mental Status: mental status grossly normal Results AMB Urinalysis, Automated UA Leukoctes 70 Ewa/uL Last Edit by Myles Logan CMA on 06/16/23 11:27 UA Nitrite Negative Last Edit by Myles Logan CMA on 06/16/23 11:27 UA Urobilinogen 0.2 mg/dL Last Edit by Myles Logan CMA on 06/16/23 11 :27 UA Protein 0 mg/dL Last Edit by Myles Logan CMA on 06/16/23 11:27 UA pH 6.0 Last Edit by Myles Logan CMA on 06/16/23 11:27 UA Blood 80 Riccardo/uL Last Edit by Myles Logan CMA on 06/16/23 11:27 UA Specific K[place]ley 1.015 Last Edit by Myles Logan CMA on 06/16/23 11:27 UA Ketone Negative Last Edit by Myles Logan CMA on 06/16/23 11:27 UA Bilirubin 0 mg/dL Last Edit by Myles Logan CMA on 06/16/23 11:27 UA Glucose 0 mg/dL Last Edit by Myles Logan CMA on 06/16/23 11:27 Results Reviewed Results Reviewed: Laboratory Last Values Urine pH (Auto) 6.0 06/16/23 11:26 Specific [place] (Auto) 1.015 06/16/23 11:26 Urine Protein (Auto) 0 mg/dL 06/16/23 11:26 Glucose (UA)(Auto) 0 mg/dL 06/16/23 11:26 Urine Ketones (Auto) Negative 06/16/23 11:26 Urine Blood (Auto) 80 Riccardo/uL 06/16/23 11:26 Urine Nitrite (Auto) Negative 06/16/23 11:26 Urine Bilirubin (Auto) 0 mg/dL 06/16/23 11:26 Urine Urobilinogen (Auto) 0.2 mg/dL 06/16/23 11:26 Leukocyte Esterase (Auto) 70 Ewa/uL 06/16/23 11:26 Assessment & Plan Assessment & Plan (1) Acute cystitis: Code(s): N30.00 - Acute cystitis without hematuria Qualifiers: Hematuria presence: with hematuria Qualified Code(s): N30.01 - Acute cystitis with hematuria (2) Blood in urine: Code(s): R31.9 - Hematuria, unspecified Qualifiers: Hematuria type: other microscopic Qualified Code(s): R31.29 - Other microscopic hematuria Plan Patient is a 53-year-old female came in today to be evaluated for possible bladder infection Patient has been having symptoms for the past 3 days, dysuria and frequency Review system: There is no fever chills no headache shortness of breath She is having suprapubic discomfort. UA shows signs of infection along with some blood I am treating her with Macrobid b.i.d. for 5 days I have also sent Diflucan tablet as patient is prone to develop yeast infection. Orders: Orders AMB Urinalysis Automated Today Z13.9 - Encounter for screening, unspecified Urine Culture Today N30.00 - Acute cystitis without hematuria Medications: New nitrofurantoin monohyd/m-cryst 100 mg (Macrobid) must administer with a meal/food 100 mg PO Q12H 10 caps 0RF 5 days fluconazole 150 mg PO .q 5 days 2 tabs 0RF 2 doses Coding Level of Care Code Est Pt Level 3 (76316) Diagnoses Acute cystitis with hematuria N30.01 Hematuria presence: with hematuria Other microscopic hematuria R31.29 Hematuria type: other microscopic
== END 2023-06-16 11:51 | disposition home or self-care (01) ==
PROVIDERS: PCP Internal Medicine; Visit Provider Internal Medicine
DX: N30.01 Acute cystitis with hematuria (principal); R30.0 Dysuria
CPT/HCPCS: 81003; 99213

== ENCOUNTER 2023-06-16 13:35 | Outpatient (REF) | payer OTHER, SELFPAY | END 2023-06-16 13:36 | disposition home or self-care (01) | LOC: HO.LNP 13:35 | PROVIDERS: Visit Provider Internal Medicine | DX: N30.00 Acute cystitis without hematuria (principal) | CPT/HCPCS: 87086; 87088; 87186 ==

== ENCOUNTER 2023-06-17 10:21 | Outpatient (AMB) | payer OTHER, SELFPAY ==
--- NOTE | 2023-06-17 10:22 | MHC.OFFVIS ---
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 Complaints include pain over varicosities, swelling of lower extremities, cramping, fatigue, and heaviness of the lower extremities. 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 It is noted more so in right leg. Patient denies any previous venous surgery or injections. Patient denies any history of DVT/ PE. Patient denies any history of phlebitis. Trial of compression includes - [] They now present for vascular evaluation regarding their varicose veins. 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 Sexual orientation: Straight/Heterosexual Gender identity: Female Cognitive needs: No Hearing needs: No Vision needs: Yes Review of Systems Const Reports as per HPI ENT Reports no additional complaints Card Denies chest pain, Denies chest pain at rest and Denies chest pain with activity Resp Denies chest congestion and Denies cough GI Reports no additional complaints Musc Details: pain over varicosities, aching of lower extremities, swelling, cramping, heaviness and tiredness, itching Denies abnormal gait Skin/Breast Reports pruritus and Denies wounds Neuro Reports no additional complaints and Denies abnormal gait Psych Denies no additional complaints Physical Exam Const General: cooperative, healthy appearing and comfortable Orientation/consciousness: oriented to person, oriented to place and oriented to time Neck Carotids: no bruits Chest Chest palpation & inspection: normal inspection of the chest and normal palpation of entire chest wall Resp Effort & Inspection: normal respiratory effort and able to speak in complete sentences Cardio Rate: regular rate Heart sounds: S1 normal heart sound present and S2 normal heart sound present Peripheral pulses: Peripheral pulses 2+ throughout GI Inspection: Yes normal to inspection Skin Other: +2 edema, large rope-like varicosities greater than 4 mm right thigh and calf CEAP Classification C4 - skin color changes Ep - Etiology Primary As - superficial veins P - reflux General skin exam: dry skin Neuro General: oriented to person, oriented to place and oriented to time Extrem Right lower extremity: full ROM, normal capillary refill and edema Left lower extremity: full ROM, normal capillary refill and edema Psych Mental Status: mental status grossly normal Assessment & Plan Assessment & Plan (1) Varicose veins of right lower extremity with inflammation: Code(s): I83.11 - Varicose veins of right lower extremity with inflammation Plan: In short, the patient has evidence of venous insufficiency. I have discussed the pathophysiology with the patient. In addition I have provided informational material regarding venous disease to the patient. We have discussed conservative measures including compression, elevation, and exercise. I have also provided a handout regarding appropriate use of compression stockings and where to purchase good compression stockings as well. I have taken the liberty of ordering venous insufficiency testing with the patient. They will follow up with me after testing. The patient had an opportunity to ask questions regarding the treatment plan. All questions were answered. Imaging studies, laboratory studies and physical exam results were discussed and reviewed in detail. No major barriers to understanding were identified. The patient expressed understanding and agreement with the above treatment plan. The patient is aware they should contact our office by phone for worsening of the current condition or the appearance of new symptoms. Thank you for allowing me to participate in the vascular care of this patient. If you have any questions or concerns regarding the treatment for the above condition please do not hesitate to contact me. The office telephone contact is [phone]. This note is constructed using voice recognition software. While every effort has been made to ensure accuracy, accounting teacher errors may have been included. Thank you for allowing me to participate in the care of your patient. Yours sincerely, Wayne Sanders MD, FACS, R.P.V.I. Orders: Orders US venous duplex LE BI 1 Week I83.11 - Varicose veins of right lower extremity with inflammation Coding Level of Care Code New Pt Level 4 (88550) Diagnoses Varicose veins of right lower extremity with inflammation I83.11
== END 2023-06-17 10:42 | disposition home or self-care (01) ==
PROVIDERS: PCP Internal Medicine; Visit Provider Surgery Vascular Surgery
DX: I83.11 Varicose veins of right lower extremity with inflammation (principal)
CPT/HCPCS: 99203

== ENCOUNTER → 2023-06-17 10:21 | Outpatient (BNVA) | payer OTHER, SELFPAY | PROVIDERS: PCP Internal Medicine; Visit Provider Surgery Vascular Surgery ==

== ENCOUNTER 2023-07-06 10:15 | Outpatient (REF) | payer OTHER, SELFPAY | END 2023-07-06 10:16 | disposition home or self-care (01) | LOC: HO.US 10:15 | PROVIDERS: PCP Internal Medicine; Visit Provider Surgery Vascular Surgery | DX: I83.11 Varicose veins of right lower extremity with inflammation (principal) | CPT/HCPCS: 93970 ==

== ENCOUNTER 2023-08-10 10:01 | Outpatient (AMB) | payer OTHER, SELFPAY ==
[2023-08-10 10:00] VITALS: BP 118/68; PULSE 74; BMI 26.6
--- NOTE | 2023-08-10 10:00 | MHC.OFFVIS ---
Intake Vital Signs 08/10/23 10:00 Height 5 ft 4 in Weight 155 lb BMI 26.6 BP 118/68 Blood Pressure Location Lt brachial Position Sitting Pulse 74 Intake Visit Reasons: Follow Up 1/2 US Intake Note: Follow-up US feeling good [employer] Required: No Allergies No Known Allergies Allergy (Verified 06/17/23 10:26) HPI Follow Up 1/2 US HPI Details Very pleasant 53-year-old female presents for follow-up regarding venous insufficiency. She has a large cluster varicosities in the right thigh and calf. She now presents for routine follow-up. She has used compression with minimal relief. She has persistent swelling and discomfort. She has undergone venous insufficiency testing [facility] Medical History Right ovarian cyst Surgical History S/P removal of right ovary Family History Father Colon cancer Mother HTN (hypertension) Diabetes mellitus Maternal Aunt Colon cancer Social History Household Members: None Housing: House Alcohol intake: current Alcohol intake frequency: holidays/special occasions only Patient Tobacco Use Status: Never used Tobacco e-Cigarette/Vaping Use: Never Used Current occupational status: employed Current occupation: [employer] Sexual orientation: Straight/Heterosexual Gender identity: Female Cognitive needs: No Hearing needs: No Vision needs: Yes Review of Systems Const All systems reviewed & are unremarkable except as noted in HPI and below Reports no additional complaints ENT Reports Normal hearing present Card Denies chest pain, Denies chest pain at rest, Denies chest pain with activity and Denies pedal edema Resp Denies cough GI Denies abdominal pain Musc Details: pain over varicosities, aching of lower extremities, swelling, cramping, heaviness and tiredness, itching Denies abnormal gait, Denies muscle cramps and Denies radiating pain into limb Skin/Breast Denies skin ulcer and Denies wounds Neuro Reports Normal hearing present and Denies abnormal gait Psych Reports no additional complaints Physical Exam Vital Signs: Last Vital Signs Pulse 74 08/10/23 10:00 BP 118/68 08/10/23 10:00 BMI result Body Mass Index 26.6 Const General: cooperative, healthy appearing and comfortable Orientation/consciousness: oriented to person, oriented to place and oriented to time HEENT Head: Yes normal to inspection Neck Neck: Yes normal visual inspection Carotids: no bruits Chest Chest palpation & inspection: normal inspection of the chest Resp Effort & Inspection: normal respiratory effort and able to speak in complete sentences Auscultation: clear to auscultation bilaterally, no crackles, no rales, no rhonchi and no wheezes Cardio Rate: regular rate Rhythm: regular rhythm Heart sounds: S1 normal heart sound present and S2 normal heart sound present Bruits: no carotid bruits Peripheral pulses: Peripheral pulses 2+ throughout GI Inspection: Yes normal to inspection Skin Other: +2 edema, right thigh and calf CEAP Classification C4 - skin color changes Ep - Etiology Primary As - superficial veins P - reflux General skin exam: dry skin Wounds: no wounds Hair: normal Neuro General: oriented to person, oriented to place and oriented to time Cranial nerves: Yes CN's II-XII intact bilaterally and Yes Normal hearing present Cognition (Neuro): normal cognition Motor exam (neuro): 5/5 motor strength present throughout Extrem General: No clubbing, No cyanosis and Yes edema Right lower extremity: full ROM, normal capillary refill and edema Left lower extremity: full ROM, normal capillary refill and edema Psych Appearance: grossly normal Mental Status: mental status grossly normal Speech and movement: Normal speech and movement present Results Reviewed Results Reviewed: Brief summary of venous insufficiency testing is as follows: right great saphenous vein: Positive right small saphenous vein: negative right accessory vein: none present left great saphenous vein: negative left small saphenous vein: negative left accessory vein: none present Please note there is no evidence of any venous aneurysms or significant tortuosity Assessment & Plan Assessment & Plan (1) Varicose veins of right lower extremity with inflammation: Code(s): I83.11 - Varicose veins of right lower extremity with inflammation Plan: This patient has varicose veins with inflammation. They continue to be a source of discomfort for the patient. The patient has tried conservative treatment with compression, leg elevation and exercise program for over 3 months time. They have been compliant with all treatment. This has provided minimal relief for the patient. I do not anticipate this course of treatment will alter the underlying etiology. The patient has been scheduled for lower extremity venous treatment inclusive of --- right great saphenous vein Cyanoacralate ablation. Risks, benefits, and complications of this procedure has been discussed in detail with the patient including but not limited to bleeding, infection, and the development of a DVT. The patient has demonstrated a clear understanding and has consented. We will schedule the patient as soon as possible. Thank you for allowing us to participate in this patient's care. If there are any questions or concerns please do not hesitate to contact us. Coding Level of Care Code Est Pt Level 4 (51807) Diagnoses Varicose veins of right lower extremity with inflammation I83.11
== END 2023-08-10 10:47 | disposition home or self-care (01) ==
PROVIDERS: PCP Internal Medicine; Visit Provider Surgery Vascular Surgery
DX: I83.11 Varicose veins of right lower extremity with inflammation (principal)
CPT/HCPCS: 99214

== ENCOUNTER → 2023-08-10 10:01 | Outpatient (BNVA) | payer OTHER, SELFPAY | PROVIDERS: PCP Internal Medicine; Visit Provider Surgery Vascular Surgery ==

== ENCOUNTER 2023-09-21 09:07 | Outpatient (AMB) | payer OTHER, SELFPAY ==
[2023-09-21 09:11] VITALS: BP 120/64; PULSE 78; O2SAT 98; BMI 25.9
--- NOTE | 2023-09-21 09:11 | A.OFFPC_ITS ---
Vital Signs 09/21/23 09:11 Height 5 ft 4 in Weight 151 lb 2 oz BMI 25.9 BP 120/64 Blood Pressure Location Rt brachial Position Sitting Pulse 78 Pulse Source Pulse Oximeter Pulse Oximetry (%) 98 Oxygen Delivery Method Room Air Intake Visit Reasons: 3 month follow up Allergies No Known Allergies Allergy (Verified 09/21/23 09:12) Medication List - Last Reconciled 09/21/23 by Priya Cortez MD levothyroxine 100 mcg PO DAILY 90 days losartan 25 mg PO DAILY Tobacco use date assessed: 09/21/23 Dental Screening Dental Screen Date: 09/21/23 Did you have a dental visit in the last 12 months?: Yes Did you have a dental problem in the last 6 months where you did not have access to dental care?: No Was dental information given to patient?: Patient has dentist HPI 3 month follow up HPI Details Patient is 53-year-old female came in today for regular follow-up appointment Patient is doing well offer no new complaints today Blood pressure is 120/64 patient is on losartan 25 mg, tolerating medication She is also on levothyroxine 100 mcg for hypothyroidism Patient will return in 3 months for physical examination, labs to be done fasting before visit. [facility] Medical History Right ovarian cyst Surgical History S/P removal of right ovary Family History Father Colon cancer Mother HTN (hypertension) Diabetes mellitus Maternal Aunt Colon cancer Social History Household Members: None Housing: House Alcohol intake: current Alcohol intake frequency: holidays/special occasions only Patient Tobacco Use Status: Never used Tobacco e-Cigarette/Vaping Use: Never Used Current occupational status: employed Current occupation: [employer] Sexual orientation: Straight/Heterosexual Gender identity: Female Cognitive needs: No Hearing needs: No Vision needs: Yes Questionnaire Thrive Questionnaire Date Thrive assessed: 09/16/21 AUDIT C Alcohol Use Questionnaire (AUDIT-C) 1. How often do you have a drink containing alcohol?: Never 3. How often do you have six or more drinks on one occasion?: Never Total Score: 0 Score Reviewed/Action Taken: Yes PHI-7 AMB Questionnaire PHI-7 Date PHI - 7 assessed: 09/16/21 Source: Developed by Drs. Bo Chowdhury, Mikayla Rizvi, Sammy Peñaloza and colleagues, with an educational madison from [employer]. Review of Systems Const Denies chills and Denies fever(s) ENT Denies epistaxis and Denies nasal discharge Card Denies chest pain Resp Denies chest congestion, Denies cough and Denies hemoptysis GI Denies diarrhea and Denies nausea Skin/Breast Denies rash Neuro Reports no additional complaints Psych Reports no additional complaints Endo Reports no additional complaints Physical exam (Primary Care) Vital Signs: Last Vital Signs Pulse 78 09/21/23 09:11 BP 120/64 09/21/23 09:11 Pulse Ox 98 09/21/23 09:11 Oxygen Delivery Method Room Air 09/21/23 09:11 BMI result Body Mass Index 25.9 Tobacco/Smoking Status: Tobacco use Status Tobacco use date assessed 09/21/23 09/21/23 09:14 Patient Tobacco Use Status Never used Tobacco 09/21/23 09:14 e-Cigarette/Vaping Use Never Used 09/21/23 09:14 Thrive Assessment: Date of Thrive Assessment Date Thrive assessed 09/16/21 09/21/23 09:14 Const General: cooperative, comfortable and no acute distress Orientation/consciousness: patient oriented x3 HENMT Head: Yes normocephalic Eyes General: appearance normal, both eyes and all related structures Neck Neck: Yes supple Resp Effort & Inspection: normal respiratory effort, no cough and no stridor Cardio Rhythm: regular rhythm Heart sounds: S1 normal heart sound present and S2 normal heart sound present Skin General skin exam: turgor normal Neuro General: patient oriented x3, tone normal and moves all extremities Extrem Right lower extremity: no edema Left lower extremity: no edema Assessment and Plan Assessment & Plan (1) Other specified hypothyroidism: Code(s): E03.8 - Other specified hypothyroidism (2) Hypertension, essential: Code(s): I10 - Essential (primary) hypertension (3) Impaired fasting blood sugar: Code(s): R73.01 - Impaired fasting glucose Plan Patient is 53-year-old female came in today for regular follow-up appointment Patient is doing well offer no new complaints today Blood pressure is 120/64 patient is on losartan 25 mg, tolerating medication She is also on levothyroxine 100 mcg for hypothyroidism Patient will return in 3 months for physical examination, labs to be done fasting before visit. Orders: Orders Lipid Panel Today E03.8 - Other specified hypothyroidism, I10 - Essential (primary) hypertension, R73.01 - Impaired fasting glucose TSH reflex Free T4 Today E03.8 - Other specified hypothyroidism, I10 - Essential (primary) hypertension, R73.01 - Impaired fasting glucose Complete Blood Count Auto Diff Today E03.8 - Other specified hypothyroidism, I10 - Essential (primary) hypertension, R73.01 - Impaired fasting glucose Comprehensive [place]. Panel Fast Today E03.8 - Other specified hypothyroidism, I10 - Essential (primary) hypertension, R73.01 - Impaired fasting glucose Medications: Refilled levothyroxine 100 mcg PO DAILY 90 tabs 1RF 90 days losartan 25 mg PO DAILY 90 tabs 1RF Coding Level of Care Code Est Pt Level 3 (59235) Diagnoses Other specified hypothyroidism E03.8 Hypertension, essential I10 Impaired fasting blood sugar R73.01
== END 2023-09-21 10:18 | disposition home or self-care (01) ==
PROVIDERS: PCP Internal Medicine; Visit Provider Internal Medicine
DX: E03.8 Other specified hypothyroidism (principal); I10 Essential (primary) hypertension; R73.01 Impaired fasting glucose
CPT/HCPCS: 99213

== ENCOUNTER 2024-04-12 13:59 | Outpatient (REF) | payer OTHER, SELFPAY ==
--- NOTE | ~2024-04-12 | MM_ITS ---
EXAMINATION: MM SCREENING DIGITAL BREAST TOMOSYNTHESIS, BILATERAL CLINICAL INFORMATION: Screening. Asymptomatic. COMPARISON: Mammography: Comparison is made with available priors TECHNIQUE: Digital breast mammography with tomosynthesis is performed in both the craniocaudal and mediolateral oblique views along with computer-aided detection (CAD). FINDINGS: There are scattered areas of fibroglandular density (ACR BI-RADS breast composition Category b). There are no significant masses, abnormal calcifications, or other abnormalities. MM/MM tomosynthesis screening BI IMPRESSION: No mammographic evidence of malignancy. ASSESSMENT: BI-RADS BI-RADS 1 - Negative RECOMMENDATION: Routine annual mammography screening. 1 year F/U This examination should not preclude the clinical evaluation of a suspicious palpable abnormality. This patient's information was entered into a reminder system with a target due date for their next mammogram. Electronically signed by: Marian Bolton DO 04/24/2024 05:58 PM EDT
== END 2024-04-12 14:00 | disposition home or self-care (01) ==
LOC: HO.MAMMO 13:59
PROVIDERS: PCP Internal Medicine; Visit Provider Internal Medicine
DX: Z12.31 Encounter for screening mammogram for malignant neoplasm of breast (principal)
CPT/HCPCS: 77063; 77067

== ENCOUNTER → 2024-04-12 14:15 | Outpatient (BNV) | payer OTHER, SELFPAY | PROVIDERS: PCP Internal Medicine; Visit Provider Internal Medicine | DX: Z12.31 Encounter for screening mammogram for malignant neoplasm of breast (principal) | CPT/HCPCS: 77063; 77067 ==

== ENCOUNTER 2024-04-18 09:33 | Outpatient (AMB) | payer OTHER, SELFPAY ==
[2024-04-18 09:37] VITALS: BP 126/78; PULSE 78; O2SAT 96; BMI 28.3
--- NOTE | 2024-04-18 09:37 | A.OFFPC_ITS ---
Vital Signs 04/18/24 09:37 Height 5 ft 4 in Weight 165 lb BMI 28.3 BP 126/78 Blood Pressure Location Lt brachial Position Sitting Pulse 78 Pulse Source Pulse Oximeter Pulse Oximetry (%) 96 Oxygen Delivery Method Room Air Intake Visit Reasons: BP MED REVIEW Allergies No Known Allergies Allergy (Verified 04/18/24 09:38) Medication List - Last Reconciled 04/18/24 by Priya Cortez MD levothyroxine 100 mcg PO DAILY 90 days losartan 25 mg PO DAILY Tobacco use date assessed: 04/18/24 Dental Screening Dental Screen Date: 04/18/24 Did you have a dental visit in the last 12 months?: Yes Did you have a dental problem in the last 6 months where you did not have access to dental care?: No Was dental information given to patient?: Patient has dentist HPI BP MED REVIEW HPI Details Patient is 53-year-old female came in today for regular follow-up appointment Patient is doing well, however she forgot to do her labs Reminded again, patient will come in tomorrow and have it done fasting Patient is doing well offer no new complaints today Blood pressure is well-controlled, patient is on losartan 25 mg, tolerating medication She is also on levothyroxine 100 mcg for hypothyroidism Follow-up 6 months Flu vaccine given today [facility] Medical History Right ovarian cyst Surgical History S/P removal of right ovary Family History Father Colon cancer Mother HTN (hypertension) Diabetes mellitus Maternal Aunt Colon cancer Social History Household Members: None Housing: House Alcohol intake: current Alcohol intake frequency: holidays/special occasions only Patient Tobacco Use Status: Never used Tobacco e-Cigarette/Vaping Use: Never Used Current occupational status: employed 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 1. Little interest or pleasure in doing things: not at all 2. Feeling down, depressed, or hopeless: not at all 3. Trouble falling or staying asleep, or sleeping too much: not at all 4. Feeling tired or having little energy: not at all 5. Poor appetite or overeating: not at all 6. Feeling bad about yourself - or that you are a failure or have let yourself or your family down: not at all 7. Trouble concentrating on things, such as reading the newspaper or watching television: not at all 8. Moving or speaking so slowly that other people could have noticed. Or the opposite - being so fidgety or restless that you have been moving around a lot more than usual: not at all 9. Thoughts that you would be better off or of hurting yourself in some way: not at all Total score: 0 Depression Screening Interpretation: Negative Depression Screening Done: Yes 87618 - PHQ-9 Billing: Yes Source: Developed by Drs. Bo Chowdhury, Mikayla Rizvi, Sammy Peñaloza and colleagues, with an educational madison from [employer]. Thrive Questionnaire Date Thrive assessed: 04/18/24 I am a: Patient What is your living situation today?: I have a steady place to live Within the past 12 months, did the food you bought not last and you didn't have the money to get more?: I choose not to answer this question Within the past 12 months, did you worry whether your food would run out before you got money to buy more?: Never true Do you have trouble paying for medicines?: No Do you have trouble getting transportation to medical appointments?: No Do you have trouble paying your heating and electricity bill?: No Do you have trouble taking care of your child, family member or friend?: No Do you have trouble with day-to-day activities such as bathing, preparing meals, shopping, managing finances, etc.?: No Are you currently unemployed and looking for a job?: No Are you interested in more education?: No Please select the resources that you would like help with: None Currently or been in a relationship where the following occur: No concerns reported THRIVE Score: 0 AUDIT C Alcohol Use Questionnaire (AUDIT-C) 1. How often do you have a drink containing alcohol?: Monthly or less 2. How many drinks containing alcohol do you have on a typical day when you are drinking?: 1 or 2 3. How often do you have six or more drinks on one occasion?: Never Total Score: 1 Score Reviewed/Action Taken: Yes PHI-7 AMB Questionnaire PHI-7 Date PHI - 7 assessed: 04/18/24 Feeling nervous, anxious, or on edge: 0 = Not at all Not being able to stop or control worryin = Not at all Worrying too much about different things: 0 = Not at all Trouble relaxin = Not at all Being so restless that it is hard to sit still: 0 = Not at all Becoming easily annoyed or irritable: 0 = Not at all Feeling afraid as if something awful might happen: 0 = Not at all Total PHI-7 score (0-4 normal; 5-9 mild; 10-14 moderate; 15-21 severe): 0 Source: Developed by Drs. Bo Chowdhury, Mikayla Rizvi, Sammy Peñaloza and colleagues, with an educational madison from [employer]. PHI-7 Assessment Billing PHI-7 Assessment Tool: PHI-7 Assessment 62099 Review of Systems Const Denies chills and Denies fever(s) ENT Denies epistaxis and Denies nasal discharge Card Denies chest pain Resp Denies chest congestion, Denies cough and Denies hemoptysis GI Denies diarrhea and Denies nausea Skin/Breast Denies rash Neuro Reports no additional complaints Psych Reports no additional complaints Endo Reports no additional complaints Physical exam (Primary Care) Vital Signs: Last Vital Signs Pulse 78 04/18/24 09:37 BP 126/78 04/18/24 09:37 Pulse Ox 96 04/18/24 09:37 Oxygen Delivery Method Room Air 04/18/24 09:37 BMI result Body Mass Index 28.3 Tobacco/Smoking Status: Tobacco use Status Tobacco use date assessed 04/18/24 04/18/24 09:42 Patient Tobacco Use Status Never used Tobacco 04/18/24 09:42 e-Cigarette/Vaping Use Never Used 04/18/24 09:42 PHQ-9: PHQ-9 Score PHQ-9: Total score 0 04/18/24 09:56 Depression Screening Interpretation: Negative Thrive Assessment: Date of Thrive Assessment Date Thrive assessed 10/15/24 10/15/24 09:42 Currently or been in a relationship where the following occur: No concerns reported Const General: cooperative, comfortable and no acute distress Orientation/consciousness: patient oriented x3 HENMT Head: Yes normocephalic Eyes General: appearance normal, both eyes and all related structures Neck Neck: Yes supple Resp Effort & Inspection: normal respiratory effort, no cough and no stridor Cardio Rhythm: regular rhythm Heart sounds: S1 normal heart sound present and S2 normal heart sound present Skin General skin exam: turgor normal Neuro General: patient oriented x3, tone normal and moves all extremities Extrem Right lower extremity: no edema Left lower extremity: no edema Office Procedures Flu Questionnaire Does the patient have a severe egg allergy?: No Does the patient have severe life threatening allergies?: No Does the patient have a fever or illness today?: No Has the patient ever had Guillain-Sibley Syndrome?: No Has the patient ever had any past reaction to a flu shot?: No Immunizations Fluarix Triv [id number] (PF) 45 mcg (15 mcg x 3)/0.5 mL IM syringe Performing Provider: Priya Cortez MD Performing Location: [facility] Administered by: DEBORAH Dillard on 04/18/24 09:58 Dose Route Admin Location Dispensed Lot Number Expiration Date 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 Operator 0.5 mL IM Right Deltoid 0.5 mL [id number] 01/01/25 [id number] [employer] VIS Given Date VIS Provided VIS Publication Date 04/18/24 Single Vaccine 21 Eligibility Eligibility Date Funding Source Not [facility] Eligible 04/18/24 Private Coding Level of Care Code Est Pt Level 3 (71869) Diagnoses Hypertension, essential I10 Impaired fasting blood sugar R73.01 Other specified hypothyroidism E03.8 Additional Codes PHI-7 Assessment Billing - PHI-7 Assessment Tool: PHI-7 Assessment 58798 ([id number]) Assessment & Plan Assessment & Plan (1) Hypertension, essential: Code(s): I10 - Essential (primary) hypertension Category: Medical (2) Impaired fasting blood sugar: Code(s): R73.01 - Impaired fasting glucose Category: Medical (3) Other specified hypothyroidism: Code(s): E03.8 - Other specified hypothyroidism Category: Medical Plan Patient is 53-year-old female came in today for regular follow-up appointment Patient is doing well, however she forgot to do her labs Reminded again, patient will come in tomorrow and have it done fasting Patient is doing well offer no new complaints today Blood pressure is well-controlled, patient is on losartan 25 mg, tolerating medication She is also on levothyroxine 100 mcg for hypothyroidism Follow-up 6 months Flu vaccine given today Orders: Orders Influenza [id number] Immunization Today Z23 - Encounter for immunization
== END 2024-04-18 10:06 | disposition home or self-care (01) ==
PROVIDERS: PCP Internal Medicine; Visit Provider Internal Medicine
DX: I10 Essential (primary) hypertension (principal); R73.01 Impaired fasting glucose; E03.8 Other specified hypothyroidism; Z23 Encounter for immunization

== ENCOUNTER → 2024-04-18 09:33 | Outpatient (BNVA) | payer OTHER, SELFPAY | PROVIDERS: PCP Internal Medicine; Visit Provider Internal Medicine | DX: I10 Essential (primary) hypertension (principal); R73.01 Impaired fasting glucose; E03.8 Other specified hypothyroidism; Z23 Encounter for immunization | CPT/HCPCS: 90471; 90656; 96127 ==

== ENCOUNTER 2024-04-19 06:04 | Outpatient (REF) | payer OTHER, SELFPAY ==
[2024-04-19 06:38] LABS: MANUAL DIFF FLAG NO
[2024-04-19 07:35] LABS: Basophils Absolute Auto 0.1 X10*3/uL (0.0-0.2); Eosinophils Absolute Auto 0.2 X10*3/uL (0.0-0.4); Eosinophils Percent Auto 3.3 % (0-4); Hematocrit 40.8 % (37.0-47.0); Hemoglobin 13.5 g/dl (12.0-16.0); Imm Gran Abs Auto 0.01 X10*3/uL (0.00-0.03); Imm Gran Pct Auto 0.2 % (0.0-0.4); Lymphocytes Absolute Auto 0.6 X10*3/uL (1.2-4.9); Lymphocytes Percent Auto 9.3 % (20-40); Mean Corpuscular HGB Conc 33.1 g/dl (31.0-35.0); Mean Corpuscular Hemoglobin 30.4 pg (27.0-33.0); Mean Corpuscular Volume 91.9 fL (80.0-98.0); Mean Platelet Volume 9.9 fL (9.4-12.3); Monocytes Absolute Auto 0.6 X10*3/uL (0.1-1.2); Monocytes Percent Auto 9.6 % (2-11); Neutrophils Absolute Auto 4.7 x10*3/uL (2.0-8.3); Neutrophils Percent Auto 76.6 % (45-73); Platelet Count 186 X10*3/uL (160-400); Red Blood Count 4.44 X10*6/uL (4.20-5.50); Red Cell Distribution Width 13.5 % (11.0-16.0); White Blood Count 6.1 X10*3/uL (4.8-10.8)
[2024-04-19 08:15] LABS: Alanine Aminotransferase 23 U/L (0-31); Albumin Level 3.9 g/dL (3.5-5.0); Alkaline Phosphatase 72 U/L (39-117); Anion Gap 9 (12-20); Aspartate Amino Transferase 21 U/L (5-31); Bilirubin Total 0.6 mg/dL (0.0-1.0); Blood Urea Nitrogen 25 mg/dL (9-16); Calcium 9.2 mg/dL (8.4-10.2); Carbon Dioxide 29 mmol/L (22-29); Chloride 108 mmol/L (96-108); Cholesterol 154 mg/dL (<200); Estimated Glomerular Filt Rate > 60; Glucose Fasting 79 mg/dL (60-99); HDL Cholesterol 84 mg/dL (>40); LDL Cholesterol Calculated 59 mg/dL (<100); Potassium 4.4 mmol/L (3.3-5.1); Sodium 142 mmol/L (135-145); Total Protein 6.7 g/dL (6.5-8.0); Triglycerides 59 mg/dL (<150)
[2024-04-19 08:20] LABS: TSH reflex Free T4 0.92 uIU/mL (0.32-4.0)
== END 2024-04-19 06:05 | disposition home or self-care (01) ==
LOC: HO.LAB 06:04
PROVIDERS: PCP Internal Medicine; Visit Provider Internal Medicine
DX: I10 Essential (primary) hypertension (principal); E03.8 Other specified hypothyroidism; R73.01 Impaired fasting glucose
CPT/HCPCS: 36415; 80053; 80061; 84443; 85025

== ENCOUNTER 2024-05-02 10:59 | Outpatient (AMB) | payer OTHER, SELFPAY ==
--- NOTE | 2024-05-02 11:05 | A.OFFVIS_ITS ---
Intake Visit Reasons: VV on right leg Intake Note: VV on right leg. Pt c/o of intermittent swelling, painful and sensation Fuel Injection Servicer Required: Yes Fuel Injection Servicer Name: [id number] Accompanied by: Self / Same As Patient Allergies No Known Allergies Allergy (Verified 05/02/24 11:09) HPI HPI VV on right leg: Details: Very pleasant 53-year-old female presents for follow-up regarding venous disease. She has large cluster varicosities in particular the right lower extremity. They have been a source of pain and discomfort for her. She had been scheduled for venous procedure in the past but had canceled due to other medical issues. She now presents for routine surveillance follow-up of her veins. Of note she has been using compression with minimal relief. 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 Sexual orientation: Straight/Heterosexual Gender identity: Female Cognitive needs: No Hearing needs: No Vision needs: Yes Review of Systems Const Denies chills, Denies fatigue, Denies fever(s), Denies weight gain and Denies weight loss ENT Denies dizziness Card Denies chest pain, Denies leg edema, Denies lightheadedness, Denies palpitations, Denies dyspnea on exertion, Denies orthopnea and Denies other Resp Denies cough and Denies dyspnea on exertion GI Denies hematochezia and Denies change in stool character Musc Details: pain over varicosities, aching of lower extremities, swelling, cramping, heaviness and tiredness, itching Denies abnormal gait, Denies muscle weakness, Denies numbness, Denies radiating pain into limb and Denies tingling Skin/Breast Reports pruritus and Denies wounds Neuro Denies abnormal gait, Denies dizziness, Denies numbness and Denies tingling Psych Denies no additional complaints Endo Denies fatigue and Denies palpitations Physical Exam Const General: cooperative, healthy appearing and comfortable Orientation/consciousness: oriented to person, oriented to place and oriented to time Neck Carotids: no bruits Chest Chest palpation & inspection: normal inspection of the chest and normal palpatio n of entire chest wall Resp Effort & Inspection: normal respiratory effort and able to speak in complete sentences Cardio Rate: regular rate Heart sounds: S1 normal heart sound present and S2 normal heart sound present Peripheral pulses: Peripheral pulses 2+ throughout GI Inspection: Yes normal to inspection Skin Other: +2 edema, large rope-like varicosities greater than 4 mm right thigh and calf CEAP Classification C4 - skin color changes Ep - Etiology Primary As - superficial veins P - reflux General skin exam: dry skin Neuro General: oriented to person, oriented to place and oriented to time Extrem Right lower extremity: full ROM, normal capillary refill and edema Left lower extremity: full ROM, normal capillary refill and edema Psych Mental Status: mental status grossly normal Results Reviewed Results Reviewed: Brief summary of venous insufficiency testing is as follows: right great saphenous vein: negative right small saphenous vein: negative right accessory vein: none present left great saphenous vein: negative left small saphenous vein: negative left accessory vein: none present Please note there is no evidence of any venous aneurysms or significant tortuosity Assessment & Plan Assessment & Plan (1) Varicose veins of right lower extremity with inflammation: Code(s): I83.11 - Varicose veins of right lower extremity with inflammation Category: Medical Plan: This patient has varicose veins with inflammation. They continue to be a source of discomfort for the patient. The patient has tried conservative treatment with compression, leg elevation and exercise program for over 3 months time. They have been compliant with all treatment. This has provided minimal relief for the patient. I do not anticipate this course of treatment will alter the underlying etiology. The patient has been scheduled for lower extremity venous treatment inclusive of --- right leg microphlebectomy. Risks, benefits, and complications of this procedure has been discussed in detail with the patient including but not limited to bleeding, infection, and the development of a DVT. The patient has demonstrated a clear understanding and has consented. We will schedule the patient as soon as possible. Thank you for allowing us to participate in this patient's care. If there are any questions or concerns please do not hesitate to contact us. Coding Level of Care Code Est Pt Level 4 (74542) Diagnoses Varicose veins of right lower extremity with inflammation I83.11
== END 2024-05-02 11:29 | disposition home or self-care (01) ==
LOC: HO.HVS 11:00
PROVIDERS: PCP Internal Medicine; Visit Provider Surgery Vascular Surgery
DX: I83.11 Varicose veins of right lower extremity with inflammation (principal)
CPT/HCPCS: 99214

== ENCOUNTER → 2024-05-02 10:59 | Outpatient (BNVA) | payer OTHER, SELFPAY | PROVIDERS: PCP Internal Medicine; Visit Provider Surgery Vascular Surgery ==

== ENCOUNTER 2024-06-16 09:17 | Outpatient (AMB) | payer OTHER, SELFPAY ==
[2024-06-16 09:52] VITALS: BMI 28.1
--- NOTE | 2024-06-16 09:52 | MHC.OFFVIS ---
Vital Signs 06/16/24 09:52 Height 5 ft 4 in Weight 164 lb BMI 28.1 Intake Visit Reasons: Right leg micro Accompanied by: Self / Same As Patient Allergies No Known Allergies Allergy (Verified 06/16/24 09:52) PFSH Medical History Right ovarian cyst Surgical History S/P removal of right ovary Family History Father Colon cancer Mother HTN (hypertension) Diabetes mellitus Maternal Aunt Colon cancer Social History Household Members: None Housing: House Alcohol intake: current Alcohol intake frequency: holidays/special occasions only Patient Tobacco Use Status: Never used Tobacco e-Cigarette/Vaping Use: Never Used Current occupational status: employed 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 Production Reproduction Manager Ban NG Varicose veins were marked in the standing position on the right leg and the patient was then placed in the supine position. The right lower extremity was prepared and draped to allow knee flexion in the sterile field. The patient had large superficial varicose veins with significant symptoms of pain. It was therefore determined to perform microphlebectomies of the clusters of varicose veins. The patient had bulging varicose veins which were previously marked in the standing position. A small stab incision was made longitudinally directly overlying the varicose vein in the calf and the varicose vein was grasped with a hemostat aided by a vein hook. It was then dissected as far proximally and distally as possible and avulsed. A total of 21 stab incisions were made and the procedure of stab phlebectomies was repeated 21 times. Hemostasis was checked and stab incision sites were closed with steri-strips and sterile dressing was given with gauze and krilex wrap followed by an rob bandage. There were no complications and blood loss was minimal. Post-Op instructions were given and a follow-up appointment was recommended. [id number] - Stab Phlebectomy >20 All charges added?: Procedure code (CPT) selection complete Assessment & Plan Assessment & Plan (1) Varicose veins of right lower extremity with inflammation: Comment: 06/16/2024 - right leg microphlebectomy Code(s): I83.11 - Varicose veins of right lower extremity with inflammation Category: Medical Plan: See op note Coding Level of Care Code Procedure Only Diagnoses Varicose veins of right lower extremity with inflammation I83.11 CPT Codes Details - Vascular 6: 68036 - Stab Phlebectomy >20 ([id number])
== END 2024-06-16 10:52 | disposition home or self-care (01) ==
PROVIDERS: PCP Internal Medicine; Visit Provider Surgery Vascular Surgery
DX: I83.11 Varicose veins of right lower extremity with inflammation (principal)
CPT/HCPCS: 37766

== ENCOUNTER 2024-07-04 14:23 | Outpatient (AMB) | payer OTHER, SELFPAY ==
--- NOTE | 2024-07-04 14:29 | A.OFFVIS_ITS ---
Intake Visit Reasons: 2 week Right leg micro follow up Intake Note: Patient presents for 2 week right leg micro follow up. No complaints. Accompanied by: Self / Same As Patient Allergies No Known Allergies Allergy (Verified 07/04/24 14:30) HPI HPI 2 week Right leg micro follow up: Details: Very pleasant 54-year-old female presents for follow-up status post right lower extremity microphlebectomy. She reports that the right leg feels significantly better. Swelling and discomfort have significantly improved. She now presents for routine follow-up. 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[employer] Sexual orientation: Straight/Heterosexual Gender identity: Female Cognitive needs: No Hearing needs: No Vision needs: Yes Review of Systems Const All systems reviewed & are unremarkable except as noted in HPI and below Reports no additional complaints ENT Reports Normal hearing present Card Denies chest pain, Denies chest pain at rest, Denies chest pain with activity and Denies pedal edema Resp Denies cough GI Denies abdominal pain Musc Denies abnormal gait, Denies muscle cramps and Denies radiating pain into limb Skin/Breast Denies skin ulcer and Denies wounds Neuro Reports Normal hearing present and Denies abnormal gait Psych Reports no additional complaints Physical Exam Const General: cooperative, healthy appearing and comfortable Orientation/consciousness: oriented to person, oriented to place and oriented to time HEENT Head: Yes normal to inspection Neck Neck: Yes normal visual inspection Carotids: no bruits Chest Chest palpation & inspection: normal inspection of the chest Resp Effort & Inspection: normal respiratory effort and able to speak in complete sentences Auscultation: clear to auscultation bilaterally, no crackles, no rales, no rhonchi and no wheezes Cardio Rate: regular rate Rhythm: regular rhythm Heart sounds: S1 normal heart sound present and S2 normal heart sound present Bruits: no carotid bruits Peripheral pulses: Peripheral pulses 2+ throughout GI Inspection: Yes normal to inspection Skin Other: Right leg incisions well healed Wounds: no wounds Hair: normal Neuro General: oriented to person, oriented to place and oriented to time Cranial nerves: Yes CN's II-XII intact bilaterally and Yes Normal hearing present Cognition (Neuro): normal cognition Motor exam (neuro): 5/5 motor strength present throughout Extrem Other: venous exam: No significant superficial varicosities or spider telangiectasias, minimal edema General: No clubbing, No cyanosis and No edema Psych Appearance: grossly normal Mental Status: mental status grossly normal Speech and movement: Normal speech and movement present Assessment & Plan Assessment & Plan (1) Varicose veins of right lower extremity with inflammation: Comment: 06/16/2024 - right leg microphlebectomy Code(s): I83.11 - Varicose veins of right lower extremity with inflammation Category: Medical Plan: The patient has done extremely well with all venous treatments. Patient's may often experience postprocedure phlebitic episodes and I have discussed with the patient use of warm compresses and NSAIDS if tolerated for pain discomfort. In addition, I have discussed continued conservative measures including use of compression, leg elevation, and exercise. The patient was also given an information sheet regarding appropriate use of compression stockings and future purchases. Thank you for allowing us to care for your patient with venous disease. Coding Level of Care Code Est Pt Level 3 (04799) Diagnoses Varicose veins of right lower extremity with inflammation I83.11
== END 2024-07-04 14:43 | disposition home or self-care (01) ==
PROVIDERS: PCP Internal Medicine; Visit Provider Surgery Vascular Surgery
DX: I83.11 Varicose veins of right lower extremity with inflammation (principal)
CPT/HCPCS: 99213

== ENCOUNTER → 2024-07-04 14:23 | Outpatient (BNVA) | payer OTHER, SELFPAY | PROVIDERS: PCP Internal Medicine; Visit Provider Surgery Vascular Surgery ==

== ENCOUNTER 2024-08-01 12:33 | Outpatient (REF) | payer OTHER, SELFPAY ==
--- OUTSIDE RECORDS SUMMARY | 2024-08-02 12:34 | XMS_ITS | Clinical Summary ---
Author Organization [facility] ity Address [address] [place] [address] Care Team Providers Care Factory Clerk Name Role Phone AmandaRadha oscar DO Primary Care Pro vider Surgical History [...] age to complete this topic Care Teams Factory Clerk Relationship Specialty Start Date End Date Radha Tran DO PCP - General Internal Medicine 05/13/15
== END 2024-08-01 12:34 | disposition home or self-care (01) ==
LOC: HO.LNP 12:33
PROVIDERS: PCP Internal Medicine; Visit Provider Internal Medicine
DX: N30.01 Acute cystitis with hematuria (principal); I10 Essential (primary) hypertension; R73.01 Impaired fasting glucose; E03.8 Other specified hypothyroidism; E66.811 Obesity, class 1; E66.09 Other obesity due to excess calories; Z68.30 Body mass index [BMI] 30.0-30.9, adult
CPT/HCPCS: 81003; 87086; 87088; 87186; 96127

== ENCOUNTER 2024-08-01 12:33 | Outpatient (AMB) | payer OTHER, SELFPAY ==
[2024-08-01 12:44] VITALS: BP 130/82; PULSE 72; O2SAT 97
--- NOTE | 2024-08-01 12:44 | MHC.PC.OV ---
Vital Signs 08/01/24 12:44 Height 5 ft 4 in Weight 175 lb BMI 30.0 BP 130/82 Blood Pressure Location Lt brachial Position Sitting Pulse 72 Pulse Source Pulse Oximeter Pulse Oximetry (%) 97 Oxygen Delivery Method Room Air Intake Visit Reasons: Urinary tract infection Allergies No Known Allergies Allergy (Verified 08/01/24 12:44) Medication List - Last Reconciled 08/01/24 by Priya Cortez MD levothyroxine 100 mcg PO DAILY 90 days losartan 25 mg PO DAILY Tobacco use date assessed: 08/01/24 Dental Screening Dental Screen Date: 08/01/24 Did you have a dental visit in the last 12 months?: Yes Did you have a dental problem in the last 6 months where you did not have access to dental care?: No Was dental information given to patient?: Patient has dentist HPI Urinary tract infection HPI Details Regular follow-up appointment and acute problem - The patient is a 54-year-old female presenting with urinary symptoms suggestive of a Urinary Tract Infection (UTI). - Recent symptoms arose after using toilet paper different from her [place] - Describes urinary urgency and frequency post-incident. - Blood pressure measured at 130/82 during the visit, managing Essential Hypertension with home monitoring advised. - Routine lab evaluations conducted in April; follow-up labs are to be conducted prior to an October appointment for ongoing monitoring of Essential Hypertension. - hypothyroidism: Continue levothyroxine 100 mcg Problem List - Urinary Tract Infection (UTI) - Essential Hypertension - hypothyroidism - obesity Patient Instructions - Start the prescribed antibiotic as soon as possible and complete the full course. - Monitor blood pressure regularly at home and report significant changes. - Schedule and complete blood work fasting prior to the October physical exam. - Keep personal wipes with you to avoid irritation caused by different products. - Follow up in October for a physical exam and lab work. Review of Systems - Genitourinary: Reports urinary urgency and frequency. - General: No fever no chills - Neurological: No headaches no dizziness - Ear nose throat: No sore throat no hearing difficulty no ear pain - Cardiovascular: No syncope, no chest pain, no palpitations - Gastrointestinal: No nausea vomiting or diarrhea - Endocrine: No polyuria polydipsia no heat intolerance Physical Exam General: No acute distress HEENT: No acute findings Neck: Supple Respiratory system: Able to talk in full sentences, no audible wheeze cardiovascular: S1-S2 regular in rate and rhythm, blood pressure 130/82 Gastrointestinal: No pain Back: No CVAT Extremities: No new findings ICU RN: Alert awake oriented x3 motor sensory intact Skin: Normal turgor PFSH Medical History Right ovarian cyst Surgical History S/P removal of right ovary Family History Father Colon cancer Mother HTN (hypertension) Diabetes mellitus Maternal Aunt Colon cancer Social History Household Members: None Housing: House Alcohol intake: current Alcohol intake frequency: holidays/special occasions only Patient Tobacco Use Status: Never used Tobacco e-Cigarette/Vaping Use: Never Used service: No Current occupational status: employed 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 1. Little interest or pleasure in doing things: not at all 2. Feeling down, depressed, or hopeless: not at all 3. Trouble falling or staying asleep, or sleeping too much: not at all 4. Feeling tired or having little energy: not at all 5. Poor appetite or overeating: not at all 6. Feeling bad about yourself - or that you are a failure or have let yourself or your family down: not at all 7. Trouble concentrating on things, such as reading the newspaper or watching television: not at all 8. Moving or speaking so slowly that other people could have noticed. Or the opposite - being so fidgety or restless that you have been moving around a lot more than usual: not at all 9. Thoughts that you would be better off or of hurting yourself in some way: not at all Total score: 0 Depression Screening Interpretation: Negative Depression Screening Done: Yes 94294 - PHQ-9 Billing: Yes Source: Developed by Drs. Bo Chowdhury, Mikayla RizviSammy and colleagues, with an educational madison from [employer]. Thrive Questionnaire Date Thrive assessed: 08/01/24 I am a: Patient What is your living situation today?: I have a steady place to live Within the past 12 months, did the food you bought not last and you didn't have the money to get more?: Often true Within the past 12 months, did you worry whether your food would run out before you got money to buy more?: Often true Do you have trouble paying for medicines?: No Do you have trouble getting transportation to medical appointments?: No Do you have trouble paying your heating and electricity bill?: No Do you have trouble taking care of your child, family member or friend?: No Do you have trouble with day-to-day activities such as bathing, preparing meals, shopping, managing finances, etc.?: No Are you currently unemployed and looking for a job?: No Are you interested in more education?: No Please select the resources that you would like help with: None Currently or been in a relationship where the following occur: No concerns reported THRIVE Score: 2 AUDIT C Alcohol Use Questionnaire (AUDIT-C) 1. How often do you have a drink containing alcohol?: Never 3. How often do you have six or more drinks on one occasion?: Never Total Score: 0 Score Reviewed/Action Taken: Yes PHI-7 AMB Questionnaire PHI-7 Date PHI - 7 assessed: 08/01/24 Feeling nervous, anxious, or on edge: 0 = Not at all Not being able to stop or control worryin = Not at all Worrying too much about different things: 0 = Not at all Trouble relaxin = Not at all Being so restless that it is hard to sit still: 0 = Not at all Becoming easily annoyed or irritable: 0 = Not at all Feeling afraid as if something awful might happen: 0 = Not at all Total PHI-7 score (0-4 normal; 5-9 mild; 10-14 moderate; 15-21 severe): 0 Source: Developed by Drs. Bo Chowdhury, Mikayla Rizvi, Sammy Peñaloza and colleagues, with an educational madison from [employer]. PHI-7 Assessment Billing PHI-7 Assessment Tool: PHI-7 Assessment 52202 Physical exam (Primary Care) Vital Signs: Last Vital Signs Pulse 72 08/01/24 12:44 BP 130/82 08/01/24 12:44 Pulse Ox 97 08/01/24 12:44 Oxygen Delivery Method Room Air 08/01/24 12:44 BMI result Body Mass Index 30.0 Tobacco/Smoking Status: Tobacco use Status Tobacco use date assessed 08/01/24 08/01/24 12:48 Patient Tobacco Use Status Never used Tobacco 08/01/24 12:48 e-Cigarette/Vaping Use Never Used 08/01/24 12:48 PHQ-9: PHQ-9 Score PHQ-9: Total score 0 08/01/24 12:48 Depression Screening Interpretation: Negative Thrive Assessment: Date of Thrive Assessment Date Thrive assessed 08/01/24 08/01/24 12:48 Currently or been in a relationship where the following occur: No concerns reported Results AMB Urinalysis, Automated UA Leukoctes 125 Ewa/uL Last Edit by Mandi Baker CCM on 08/01/24 13:05 UA Nitrite Negative Last Edit by Mandi Baker [facility] on 08/01/24 13:05 UA Urobilinogen 0.2 mg/dL Last Edit by Mandi Baker [facility] on 08/01/24 13:05 UA Protein 15 mg/dL Last Edit by Mandi Baker [facility] on 08/01/24 13:05 UA pH 6.0 Last Edit by Mandi Baker [facility] on 08/01/24 13:05 UA Blood 200 Riccardo/uL Last Edit by Mandi Baker [facility] on 08/01/24 13:05 UA Specific Brooks 1.015 Last Edit by Mandi Baker [facility] on 08/01/24 13:05 UA Ketone Negative Last Edit by Mandi Baker [facility] on 08/01/24 13:05 UA Bilirubin 0 mg/dL Last Edit by Mandi Baker [facility] on 08/01/24 13:05 UA Glucose 0 mg/dL Last Edit by Mandi Baker [facility] on 08/01/24 13:05 Coding Level of Care Code Est Pt Level 4 (81050) Diagnoses Acute cystitis with hematuria N30.01 Hematuria presence: with hematuria Hypertension, essential I10 Impaired fasting blood sugar R73.01 Other specified hypothyroidism E03.8 Class 1 obesity due to excess calories with serious comorbidity and body mass index (BMI) of 30.0 to 30.9 in adult E66.811; E66.09; Z68.30 Body mass index: BMI 30.0-30.9 Obesity classification: adult class 1 (BMI 30 - 34.9) Serious obesity comorbidity presence: with serious comorbidity Additional Codes PHI-7 Assessment Billing - PHI-7 Assessment Tool: PHI-7 Assessment 92445 ([id number]) PHQ-9 - 84295 - PHQ-9 Billing: Yes ([id number]) Assessment & Plan Assessment & Plan (1) Acute cystitis: Code(s): N30.00 - Acute cystitis without hematuria Category: Medical Qualifiers: Hematuria presence: with hematuria Qualified Code(s): N30.01 - Acute cystitis with hematuria (2) Hypertension, essential: Code(s): I10 - Essential (primary) hypertension Category: Medical (3) Impaired fasting blood sugar: Code(s): R73.01 - Impaired fasting glucose Category: Medical (4) Other specified hypothyroidism: Code(s): E03.8 - Other specified hypothyroidism Category: Medical (5) Obesity due to excess calories: Code(s): E66.09 - Other obesity due to excess calories Category: Medical Qualifiers: Body mass index: BMI 30.0-30.9 Obesity classification: adult class 1 (BMI 30 - 34.9) Serious obesity comorbidity presence: with serious comorbidity Qualified Code(s): E66.811 - Obesity, class 1; E66.09 - Other obesity due to excess calories; Z68.30 - Body mass index [BMI] 30.0-30.9, adult Plan Regular follow-up appointment and acute problem - The patient is a 54-year-old female presenting with urinary symptoms suggestive of a Urinary Tract Infection (UTI). - Recent symptoms arose after using toilet paper different from her usual wipes [place]. - Describes urinary urgency and frequency post-incident. - Blood pressure measured at 130/82 during the visit, managing Essential Hypertension with home monitoring advised. - Routine lab evaluations conducted in April; follow-up labs are to be conducted prior to an October appointment for ongoing monitoring of Essential Hypertension. - hypothyroidism: Continue levothyroxine 100 mcg Problem List - Urinary Tract Infection (UTI) - Essential Hypertension - hypothyroidism - obesity Patient Instructions - Start the prescribed antibiotic as soon as possible and complete the full course. - Monitor blood pressure regularly at home and report significant changes. - Schedule and complete blood work fasting prior to the October physical exam. - Keep personal wipes with you to avoid irritation caused by different products. - Follow up in October for a physical exam and lab work. Orders: Orders Urine Culture Today N30.01 - Acute cystitis with hematuria AMB Urinalysis Automated Today Z13.9 - Encounter for screening, unspecified Comprehensive [place]. Panel Fast 3 Months E03.8 - Other specified hypothyroidism, E66.09 - Other obesity due to excess calories, E66.811 - Obesity, class 1, I10 - Essential (primary) hypertension, N30.01 - Acute cystitis with hematuria, R73.01 - Impaired fasting glucose, Z68.30 - Body mass index [BMI] 30.0-30.9, adult Vitamin D 25-OH (D2 and D3) 3 Months E03.8 - Other specified hypothyroidism, E66.09 - Other obesity due to excess calories, E66.811 - Obesity, class 1, I10 - Essential (primary) hypertension, N30.01 - Acute cystitis with hematuria, R73.01 - Impaired fasting glucose, Z68.30 - Body mass index [BMI] 30.0-30.9, adult Complete Blood Count Auto Diff 3 Months E03.8 - Other specified hypothyroidism, E66.09 - Other obesity due to excess calories, E66.811 - Obesity, class 1, I10 - Essential (primary) hypertension, N30.01 - Acute cystitis with hematuria, R73.01 - Impaired fasting glucose, Z68.30 - Body mass index [BMI] 30.0-30.9, adult Lipid Panel 3 Months E03.8 - Other specified hypothyroidism, E66.09 - Other obesity due to excess calories, E66.811 - Obesity, class 1, I10 - Essential (primary) hypertension, N30.01 - Acute cystitis with hematuria, R73.01 - Impaired fasting glucose, Z68.30 - Body mass index [BMI] 30.0-30.9, adult UA CC w/rflx Micro + Cult 3 Months E03.8 - Other specified hypothyroidism, E66.09 - Other obesity due to excess calories, E66.811 - Obesity, class 1, I10 - Essential (primary) hypertension, N30.01 - Acute cystitis with hematuria, R73.01 - Impaired fasting glucose, Z68.30 - Body mass index [BMI] 30.0-30.9, adult TSH reflex Free T4 3 Months E03.8 - Other specified hypothyroidism, E66.09 - Other obesity due to excess calories, E66.811 - Obesity, class 1, I10 - Essential (primary) hypertension, N30.01 - Acute cystitis with hematuria, R73.01 - Impaired fasting glucose, Z68.30 - Body mass index [BMI] 30.0-30.9, adult Hemoglobin A1c 3 Months E03.8 - Other specified hypothyroidism, E66.09 - Other obesity due to excess calories, E66.811 - Obesity, class 1, I10 - Essential (primary) hypertension, N30.01 - Acute cystitis with hematuria, R73.01 - Impaired fasting glucose, Z68.30 - Body mass index [BMI] 30.0-30.9, adult Medications: New nitrofurantoin monohyd/m-cryst 100 mg (Macrobid) must administer with a meal/food 100 mg PO Q12H 5 days 10 caps 0RF
--- OUTSIDE RECORDS SUMMARY | 2024-08-01 13:27 | XMS_ITS | Clinical Summary ---
Author Organization [facility] ity Address [address] [place] [address] Care Team Providers Care Block Cleaner Name Role Phone Radha Tran DO Primary Care Pro vider Surgical History Surgery Date Site/Laterality Comments OTHER SURGICAL HISTORY PROCEDURE: DENIES PREVIOUS SURGERY Medical History Medical History Date Comments Hypothyroid DX:Hypothyroid HTN (hypertension) DX:HTN (hyper tension) Family History Medical History Relation Name Comments Hyperlipidemia Maternal Grandmother htn; stroke, anemia; thyroid disease Anemia Sister 1 iron deficiency Relation Name Status Comments Father Maternal Grandmother Mother Alive Sister 1 Sister 2 Social History Tobacco Use Types Packs/Day Years Used Date Smoking Tobacco: Never Smokeless Tobacco: Never Alcohol Use Standard Drinks/Week Comments No 0 (1 standard drink = 0.6 oz pur e alcohol) Sex and Gender Information Value Date Recorded Sex Assigned at Not on file Gender Identity Not on file Sexual Orientation Not on file Obstetrics History Plan of Treatment Health Maintenance Due Date Last Done Comments Breast Cancer Screening 1969 DTaP,Tdap,and Td Vaccines (1 - Tdap) 1988 Hepatitis B Vaccines (1 of 3 - 19+ 3-dose series) 1988 Cervical Cancer Screening: P ap Smear 1990 Zoster Vaccines (1 of 2) 2019 COVID-19 Vaccine ( - 2023-2 5 season) 2024 Influenza Vaccine (#1) 2024 HIB Vaccines Aged Out No longer eligi ble based on patient's age to complete this topic HPV Vaccines Aged Out No longer eligi ble based on patient's age to complete this topic Hepatitis A Vaccines Aged Out No long er eligible based on patient's age to complete this topic IPV Vaccines Aged Out No longer eligi ble based on patient's age to complete this topic MMR Vaccines Aged Out No longer eligi ble based on patient's age to complete this topic Meningococcal ACWY Vaccine Aged Out N o longer eligible based on patient's age to complete this topic Pneumococcal Vaccine: Pediat rics (0 to 5 Years) and At-Risk Patients (6 to 64 Years) Aged Out No longer eligible b ased on patient's age to complete this topic RSV Immunization Patients Un [place] 20 months Aged Out No longer eligible b ased on patient's age to complete this topic Varicella Vaccines Aged Out No longer eligible based on patient's age to complete this topic Care Teams Block Cleaner Relationship Specialty Start Date End Date Radha Tran DO PCP - General Internal Medicine 05/13/15
== END 2024-08-01 13:53 | disposition home or self-care (01) ==
PROVIDERS: PCP Internal Medicine; Visit Provider Internal Medicine
DX: N30.01 Acute cystitis with hematuria (principal); I10 Essential (primary) hypertension; R73.01 Impaired fasting glucose; E03.8 Other specified hypothyroidism; E66.811 Obesity, class 1; E66.09 Other obesity due to excess calories; Z68.30 Body mass index [BMI] 30.0-30.9, adult; Z13.9 Encounter for screening, unspecified

== ENCOUNTER 2024-10-24 06:05 | Outpatient (REF) | payer OTHER, SELFPAY ==
[2024-10-24 06:28] LABS: MANUAL DIFF FLAG NO
[2024-10-24 07:32] LABS: Basophils Absolute Auto 0.1 X10*3/uL (0.0-0.2); Basophils Percent Auto 0.8 % (0-2); Eosinophils Absolute Auto 0.2 X10*3/uL (0.0-0.4); Eosinophils Percent Auto 2.9 % (0-4); Hematocrit 40.1 % (37.0-47.0); Hemoglobin 13.1 g/dl (12.0-16.0); Imm Gran Abs Auto 0.01 X10*3/uL (0.00-0.03); Imm Gran Pct Auto 0.2 % (0.0-0.4); Lymphocytes Absolute Auto 1.8 X10*3/uL (1.2-4.9); Lymphocytes Percent Auto 28.9 % (20-40); Mean Corpuscular HGB Conc 32.7 g/dl (31.0-35.0); Mean Corpuscular Hemoglobin 29.6 pg (27.0-33.0); Mean Corpuscular Volume 90.5 fL (80.0-98.0); Mean Platelet Volume 10.2 fL (9.4-12.3); Monocytes Absolute Auto 0.6 X10*3/uL (0.1-1.2); Monocytes Percent Auto 9.1 % (2-11); Neutrophils Absolute Auto 3.7 x10*3/uL (2.0-8.3); Neutrophils Percent Auto 58.1 % (45-73); Platelet Count 239 X10*3/uL (160-400); Red Blood Count 4.43 X10*6/uL (4.20-5.50); White Blood Count 6.3 X10*3/uL (4.8-10.8)
[2024-10-24 07:40] LABS: Estimated Average Glucose 103 mg/dL; Hemoglobin A1C 116.1577 umol/L; Hemoglobin A1c % 5.2 % (<6.0); Total Hemoglobin (HGBA1C) 3475.8149 umol/L
[2024-10-24 08:09] LABS: Appearance Urine Clear; Color Urine Yellow; Glucose Urine UA Negative (Negative); Leukocyte Esterase Urine Negative (Negative); Nitrite Urine Negative (Negative); PH 5.5 (5.0-9.0); UMIC TRIGGER UACC YES; Urine Blood Trace (Negative); Urine Ketones Negative (Negative); Urine Protein Negative (Neg-Trace)
[2024-10-24 08:15] LABS: Bacteria Urine None Seen (None Seen); Hyaline Casts Urine 0-2 /LPF (0-2); RBC Urine 0-2 /HPF (0-2); Squamous Epithelial Cell Urine 0-2 /HPF (0-2); WBC Urine 0-5 /HPF (0-5)
[2024-10-24 08:28] LABS: Alanine Aminotransferase 24 U/L (0-31); Albumin Level 3.8 g/dL (3.5-5.0); Alkaline Phosphatase 74 U/L (39-117); Anion Gap 9 (12-20); Aspartate Amino Transferase 26 U/L (5-31); Bilirubin Total 0.5 mg/dL (0.0-1.0); Blood Urea Nitrogen 23 mg/dL (9-16); Calcium 9.1 mg/dL (8.4-10.2); Carbon Dioxide 28 mmol/L (22-29); Chloride 109 mmol/L (96-108); Cholesterol 147 mg/dL (<200); Estimated Glomerular Filt Rate > 60; Glucose Fasting 81 mg/dL (60-99); HDL Cholesterol 63 mg/dL (>40); LDL Cholesterol Calculated 63 mg/dL (<100); Potassium 4.4 mmol/L (3.3-5.1); Sodium 142 mmol/L (135-145); Total Protein 6.6 g/dL (6.5-8.0); Triglycerides 105 mg/dL (<150)
[2024-10-24 08:46] LABS: TSH reflex Free T4 0.52 uIU/mL (0.32-4.0)
[2024-10-30 14:38] LABS: Vitamin D 25-OH, D2 <4 ng/mL; Vitamin D 25-OH, D3 32 ng/mL; Vitamin D 25-OH, Total 32 ng/mL (30-100)
== END 2024-10-24 06:06 | disposition home or self-care (01) ==
LOC: HO.LAB 06:05
PROVIDERS: PCP Internal Medicine; Visit Provider Internal Medicine
DX: N30.01 Acute cystitis with hematuria (principal); E03.8 Other specified hypothyroidism; E66.811 Obesity, class 1; E66.09 Other obesity due to excess calories; Z68.30 Body mass index [BMI] 30.0-30.9, adult; R73.01 Impaired fasting glucose; I10 Essential (primary) hypertension
CPT/HCPCS: 36415; 80053; 80061; 81001; 81003; 82306; 83036; 84443; 85025

== ENCOUNTER 2024-10-27 12:48 | Outpatient (AMB) | payer OTHER, SELFPAY ==
[2024-10-27 13:04] VITALS: BP 132/84; PULSE 69; TEMP 36.7; O2SAT 97; BMI 31.0
--- NOTE | 2024-10-27 13:04 | MHC.PC.OV ---
Vital Signs 10/27/24 13:04 Height 5 ft 4 in Weight 180 lb 8 oz BMI 31.0 BP 132/84 Blood Pressure Location Rt brachial Position Sitting Pulse 69 Pulse Source Pulse Oximeter Temp 98.1 F Temp Source Oral Pulse Oximetry (%) 97 Oxygen Delivery Method Room Air Intake Visit Reasons: CPE Allergies No Known Allergies Allergy (Verified 10/27/24 13:05) Medication List - Last Reconciled 10/27/24 by Priya Cortez MD levothyroxine 100 mcg PO DAILY 90 days losartan 25 mg PO DAILY Tobacco use date assessed: 10/27/24 Dental Screening Dental Screen Date: 10/27/24 Did you have a dental visit in the last 12 months?: Yes Did you have a dental problem in the last 6 months where you did not have access to dental care?: No Was dental information given to patient?: Patient has dentist HPI CPE HPI Details Physical exam - The patient is a 54-year-old female with a history of hypertension, tubular adenoma last colonoscopy 2018, hypothyroidism, obesity, prediabetes - Diagnosed with hypertension, previously managed with Losartan 25 mg daily. - Recent challenges with medication adherence, not taking the medication for approximately a week and a half. - Last noted blood pressure readings at home reveal increased levels, without providing specific numbers. - Prior observation of high blood pressure readings even under medication. - No documented recent home monitoring details for blood pressure. - Recent lab results are unremarkable except for vitamin D status still pending. Liver, kidney, cholesterol, sugar, and thyroid functions are within normal ranges. Health Maintenance - Mammogram completed in April; patient maintains regular OBGYN visits, last in 2022. - Colonoscopy performed in 2018; due for colonoscopy referral placed - Routine labs show no anemia, normal complete blood count, electrolytes, kidney functions, sugar, liver enzymes, and cholesterol levels are good. Awaiting vitamin D results. Medications - Losartan 25 mg, for hypertension management. Increase to 50 mg - Hydroxyzine 100 mcg, indication not specified. Employment - works as [employer] Diagnostic results - Labs: Normal complete blood count, electrolytes, kidney functions, liver enzymes, and cholesterol levels. Awaiting vitamin D results. - Other tests: Normal CT, indicating no anemia. Patient Instructions - Continue taking Losartan at 50 mg , check your blood pressure daily for a week and call me with readings - Follow-up with your OBGYN and call to book an appointment if not already done. - labs to be done before next visit - Keep track of any changes and report any unusual symptoms. - make appointment for colonoscopy Review of Systems - General: No fever no chills - Neurological: No headaches no dizziness - Ear nose throat: No sore throat no hearing difficulty no ear pain - Cardiovascular: No syncope, no chest pain, no palpitations - Gastrointestinal: No nausea vomiting or diarrhea - Endocrine: No polyuria polydipsia no heat intolerance - Genitourinary: No dysuria - Skin: No new complaints Physical Exam General: Cooperative, healthy appearing, comfortable, no acute distress Orientation: Patient oriented x3 Limitations: None Head: Normal to inspection Ears: Within normal limit visually Nose: Normal external nose present Face and sinus: Normal facial exam Eyes: Appearance normal, extraocular movement intact pupils reactive Neck: Normal visual inspection and supple Respiratory: Normal respiratory effort and able to speak in complete sentences. Clear to auscultation, no stridor Cardiovascular: S1 and S2 RRR Breast exam benign GI: Normal to inspection. Soft to palpation and nontender Skin: Turgor normal, no acute findings, no rash or moles noted Neuro: Patient oriented x3, motor sensory intact, balance intact, tandem pass Extremities: Normal to inspection PFSH Medical History Right ovarian cyst Surgical History S/P removal of right ovary Family History Father Colon cancer Mother HTN (hypertension) Diabetes mellitus Maternal Aunt Colon cancer Social History Household Members: None Housing: House Alcohol intake: current Alcohol intake frequency: holidays/special occasions only Patient Tobacco Use Status: Never used Tobacco e-Cigarette/Vaping Use: Never Used service: No Current occupational status: employed Current occupation: [employer] Sexual orientation: Straight/Heterosexual Gender identity: Female Cognitive needs: No Hearing needs: No Vision needs: Yes Questionnaire PHQ-9 Over the last 2 weeks, how often have you been bothered by any of the following problems? 1. Little interest or pleasure in doing things: not at all 2. Feeling down, depressed, or hopeless: not at all 3. Trouble falling or staying asleep, or sleeping too much: not at all 4. Feeling tired or having little energy: not at all 5. Poor appetite or overeating: not at all 6. Feeling bad about yourself - or that you are a failure or have let yourself or your family down: not at all 7. Trouble concentrating on things, such as reading the newspaper or watching television: not at all 8. Moving or speaking so slowly that other people could have noticed. Or the opposite - being so fidgety or restless that you have been moving around a lot more than usual: not at all 9. Thoughts that you would be better off or of hurting yourself in some way: not at all Total score: 0 Depression Screening Interpretation: Negative Depression Screening Done: Yes 46732 - PHQ-9 Billing: Yes Source: Developed by Drs. Bo Chowdhury, Mikayla Rizvi, Sammy Peñaloza and colleagues, with an educational madison from [facility]. Thrive Questionnaire Date Thrive assessed: 10/27/24 I am a: Patient What is your living situation today?: I have a steady place to live Within the past 12 months, did the food you bought not last and you didn't have the money to get more?: Never true Within the past 12 months, did you worry whether your food would run out before you got money to buy more?: Never true Do you have trouble paying for medicines?: No Do you have trouble getting transportation to medical appointments?: No Do you have trouble paying your heating and electricity bill?: No Do you have trouble taking care of your child, family member or friend?: No Do you have trouble with day-to-day activities such as bathing, preparing meals, shopping, managing finances, etc.?: No Are you currently unemployed and looking for a job?: No Are you interested in more education?: No Please select the resources that you would like help with: None Currently or been in a relationship where the following occur: No concerns reported THRIVE Score: 0 AUDIT C Alcohol Use Questionnaire (AUDIT-C) 1. How often do you have a drink containing alcohol?: Never 3. How often do you have six or more drinks on one occasion?: Never Total Score: 0 Score Reviewed/Action Taken: Yes PHI-7 AMB Questionnaire PHI-7 Date PHI - 7 assessed: 10/27/24 Feeling nervous, anxious, or on edge: 0 = Not at all Not being able to stop or control worryin = Not at all Worrying too much about different things: 0 = Not at all Trouble relaxin = Not at all Being so restless that it is hard to sit still: 0 = Not at all Becoming easily annoyed or irritable: 0 = Not at all Feeling afraid as if something awful might happen: 0 = Not at all Total PHI-7 score (0-4 normal; 5-9 mild; 10-14 moderate; 15-21 severe): 0 Source: Developed by Drs. Bo Chowdhury, Mikayla Rizvi, Sammy Peñaloza and colleagues, with an educational madison from [facility]. Physical exam (Primary Care) Vital Signs: Last Vital Signs Temp 98.1 F 10/27/24 13:04 Pulse 69 10/27/24 13:04 BP 132/84 10/27/24 13:04 Pulse Ox 97 10/27/24 13:04 Oxygen Delivery Method Room Air 10/27/24 13:04 BMI result Body Mass Index 31.0 Tobacco/Smoking Status: Tobacco use Status Tobacco use date assessed 10/27/24 10/27/24 13:05 Patient Tobacco Use Status Never used Tobacco 10/27/24 13:05 e-Cigarette/Vaping Use Never Used 10/27/24 13:05 PHQ-9: PHQ-9 Score PHQ-9: Total score 0 10/27/24 13:10 Depression Screening Interpretation: Negative Thrive Assessment: Date of Thrive Assessment Date Thrive assessed 10/27/24 10/27/24 13:05 Currently or been in a relationship where the following occur: No concerns reported Coding Level of Care Code Est Pt Level 3 (48231) Est Pt Prev Care 40-64y(38670) Diagnoses Encounter for general adult medical examination with abnormal findings Z00.01 Tubular adenoma of colon D12.6 Hypertension, essential I10 Impaired fasting blood sugar R73.01 Other specified hypothyroidism E03.8 Class 1 obesity due to excess calories with serious comorbidity and body mass index (BMI) of 30.0 to 30.9 in adult E66.811; E66.09; Z68.30 Obesity classification: adult class 1 (BMI 30 - 34.9) Serious obesity comorbidity presence: with serious comorbidity Body mass index: BMI 30.0-30.9 Additional Codes PHQ-9 - 03849 - PHQ-9 Billing: Yes ([id number]) Assessment & Plan Assessment & Plan (1) Encounter for general adult medical examination with abnormal findings: Code(s): Z00.01 - Encounter for general adult medical examination with abnormal findings Category: Medical (2) Tubular adenoma of colon: Code(s): D12.6 - Benign neoplasm of colon, unspecified Category: Medical (3) Hypertension, essential: Code(s): I10 - Essential (primary) hypertension Category: Medical (4) Impaired fasting blood sugar: Code(s): R73.01 - Impaired fasting glucose Category: Medical (5) Other specified hypothyroidism: Code(s): E03.8 - Other specified hypothyroidism Category: Medical (6) Obesity due to excess calories: Code(s): E66.09 - Other obesity due to excess calories Category: Medical Qualifiers: Obesity classification: adult class 1 (BMI 30 - 34.9) Serious obesity comorbidity presence: with serious comorbidity Body mass index: BMI 30.0-30.9 Qualified Code(s): E66.811 - Obesity, class 1; E66.09 - Other obesity due to excess calories; Z68.30 - Body mass index [BMI] 30.0-30.9, adult Plan Physical exam - The patient is a 54-year-old female with a history of hypertension, tubular adenoma last colonoscopy 2018, hypothyroidism, obesity, prediabetes - Diagnosed with hypertension, previously managed with Losartan 25 mg daily. - Recent challenges with medication adherence, not taking the medication for approximately a week and a half. - Last noted blood pressure readings at home reveal increased levels, without providing specific numbers. - Prior observation of high blood pressure readings even under medication. - No documented recent home monitoring details for blood pressure. - Recent lab results are unremarkable except for vitamin D status still pending. Liver, kidney, cholesterol, sugar, and thyroid functions are within normal ranges. Health Maintenance - Mammogram completed in April; patient maintains regular OBGYN visits, last in 2022. - Colonoscopy performed in 2018; due for colonoscopy referral placed - Routine labs show no anemia, normal complete blood count, electrolytes, kidney functions, sugar, liver enzymes, and cholesterol levels are good. Awaiting vitamin D results. Medications - Losartan 25 mg, for hypertension management. Increase to 50 mg - Hydroxyzine 100 mcg, indication not specified. Employment - works as [employer] Diagnostic results - Labs: Normal complete blood count, electrolytes, kidney functions, liver enzymes, and cholesterol levels. Awaiting vitamin D results. - Other tests: Normal CT, indicating no anemia. Patient Instructions - Continue taking Losartan at 50 mg , check your blood pressure daily for a week and call me with readings - Follow-up with your OBGYN and call to book an appointment if not already done. - labs to be done before next visit - Keep track of any changes and report any unusual symptoms. - make appointment for colonoscopy Orders: Orders TSH reflex Free T4 5 Months E03.8 - Other specified hypothyroidism, I10 - Essential (primary) hypertension, R73.01 - Impaired fasting glucose Comprehensive Met. Panel 5 Months E03.8 - Other specified hypothyroidism, I10 - Essential (primary) hypertension, R73.01 - Impaired fasting glucose Comprehensive [place]. Panel Fast 5 Months E03.8 - Other specified hypothyroidism, I10 - Essential (primary) hypertension, R73.01 - Impaired fasting glucose Lipid Panel 5 Months E03.8 - Other specified hypothyroidism, I10 - Essential (primary) hypertension, R73.01 - Impaired fasting glucose Referrals Gastroenterology Referral D12.6 - Benign neoplasm of colon, unspecified LOADER Referral Z01.419 - Encounter for gynecological examination (general) (routine) without abnormal findings Medications: Changed From losartan 25 mg PO DAILY 90 tabs 0RF To losartan 50 mg PO DAILY 90 tabs 0RF
--- OUTSIDE RECORDS SUMMARY | 2024-10-27 13:28 | XMS_ITS | Clinical Summary ---
Author Organization [facility] ity Address [address] [place] [address] Care Team Providers Care Pier Master Assistant Name Role Phone Radha Tran DO Primary [...] drink = 0.6 oz pur e alcohol) Comments Unknown Sex and Gender Information Value Date Recorded Sex Assigned at Not on file Legal Sex Female 3:58 AM EST Gender Identity Not on file Sexual Orientation Not on file Obstetrics History Plan of Treatment Health Maintenance Due Date Last Done Comments Breast Cancer Screening 1969 DTaP,Tdap,and Td Vaccines (1 - Tdap) 1988 Hepatitis B Vaccines (1 of 3 - 19+ 3-dose series) 1988 Cervical Cancer Screening: P ap Smear 1990 Pneumococcal Vaccine: 50+ Ye ars (1 of 1 - PCV) 2019 Zoster Vaccines (1 of 2) 2019 COVID-19 Vaccine (2023-2 5 season) 2024 Influenza Vaccine (Season Ended) 2025 HIB Vaccines Aged Out No longer eligi [...] patient's age to complete this topic Meningococcal B Vaccine Aged Out No l onger eligible based on patient's age to complete [...] age to complete this topic Care Teams Pier Master Assistant Relationship Specialty Start Date End Date Radha Tran DO PCP - General Internal Medicine 05/13/15
== END 2024-10-27 13:34 | disposition home or self-care (01) ==
LOC: HO.HMCC 12:49
PROVIDERS: PCP Internal Medicine; Visit Provider Internal Medicine
DX: Z00.00 Encounter for general adult medical examination without abnormal findings (principal); D12.6 Benign neoplasm of colon, unspecified; I10 Essential (primary) hypertension; E66.811 Obesity, class 1; Z68.30 Body mass index [BMI] 30.0-30.9, adult; R73.01 Impaired fasting glucose; E03.8 Other specified hypothyroidism

== ENCOUNTER → 2024-10-27 12:48 | Outpatient (BNVA) | payer OTHER, SELFPAY | PROVIDERS: PCP Internal Medicine; Visit Provider Internal Medicine | DX: Z00.01 Encounter for general adult medical examination with abnormal findings (principal); D12.6 Benign neoplasm of colon, unspecified; I10 Essential (primary) hypertension; R73.01 Impaired fasting glucose; E03.8 Other specified hypothyroidism; E66.811 Obesity, class 1; E66.09 Other obesity due to excess calories; Z68.30 Body mass index [BMI] 30.0-30.9, adult; Z79.899 Other long term (current) drug therapy | CPT/HCPCS: 96127 ==

== ENCOUNTER 2025-04-17 13:43 | Outpatient (REF) | payer OTHER, SELFPAY ==
--- OUTSIDE RECORDS SUMMARY | 2025-04-17 16:38 | XMS_ITS | Clinical Summary ---
Author Organization [facility] Address [address] [place] [id number] Phone Care Team Providers Care Automotive Accessory Installer Name Role Phone Priya Cortez MD Primary Care Provider [phone] Allergies No known active allergies Medications levothyroxine (SYNTHROID, LEVOTHROID) 100 MCG tablet Take 1 tablet by mouth every morning. 07/24/2023 Active losartan (COZAAR) 25 MG tablet Take 1 tablet by mouth every morning. 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 Not on ora e 08/11/2023 Are you concerned about learning? Not on file 08/11/2023 No 08/11/2023 No 08/11/2023 Digital Access Answer Date Recorded No 08/11/2023 No 08/11/2023 Reliable internet access at home? Not on file 08/11/2023 Device with a working camera? Not on file Comments Unknown Sex and Gender Information Value Date Recorded Sex Assigned at Not on file Legal Sex Female 1:28 PM EST Gender Identity Not on file Sexual Orientation Not on file Last Filed Vital Signs Vital Sign Reading Time Taken Comments Blood Pressure 125/75 10/19/2023 10:06 AM EDT Pulse 59 10/19/2023 10:06 AM EDT Temperature - - Respiratory Rate - - Oxygen Saturation - - Inhaled Oxygen Concentration - - Weight 68 kg (150 lb) 10/19/2023 10:06 AM EDT Height 160.5 cm (5' 3.2 ) 10/19/2023 10:06 AM ED T Body Mass Index 26.4 10/19/2023 10:06 AM EDT Plan of Treatment Health Maintenance Due Date Last Done Comments Adult Td,Tdap Booster 1969 CREATININE LEVEL 1969 LIPID PANEL 1969 POTASSIUM LEVEL 1969 TSH LEVEL 1969 DEPRESSION SCREENING 1981 HEPATITIS C SCREENING 1987 HIV ONE-TIME SCREENING (18-6 5 YEARS) 1987 SMOKING STATUS SCREENING (On ce After 26 Yrs) 1995 SCREENING FOR DIABETES 2004 MAMMOGRAM 2009 COLOGUARD 2014 COLONOSCOPY 2014 COLORECTAL CANCER SCREENING 2014 FIT TEST 2014 FOBT 2014 SIGMOIDOSCOPY 2014 VIRTUAL COLONOSCOPY 2014 PNEUMOCOCCAL VACCINES (50+ y ears) (1 of 1 - PCV) 2019 ZOSTER VACCINES (1 of 2) 2019 INFLUENZA VACCINE (#1) 2025 COVID-19 VACCINE ( - 2024-2 6 season) 2025 RSV VACCINE (1 - 1-dose 75+ series) 2044 HEPATITIS A VACCINES Aged Out No long er eligible based on patient's age to complete this topic HIB VACCINES Aged Out No longer eligi ble based on patient's age to complete this topic MENINGOCOCCAL VACCINES (ACWY) Aged Out No longer eligible based on patient's age to complete this topic MENINGOCOCCAL VACCINES (B) Aged Out N o longer eligible based on patient's age to complete this topic Medical Devices Not on file Insurance [employer] Care Teams Automotive Accessory Installer Relationship Specialty Start Date End Date Priya Cortez MD [facility] [place] [place] [id number] PCP - General Internal Medicine 08/11/23 Additional Source Comments The information contained in this document represents components of the legal health record. It is not the complete legal health record.[facility]
--- OUTSIDE RECORDS SUMMARY | 2025-04-17 16:38 | XMS_ITS | Clinical Summary ---
Author Organization [facility] ity Address [address] [place] [address] Care Team Providers Care Filter Tender Jelly Name Role Phone Radha Tran DO Primary [...] 2019 Zoster Vaccines (1 of 2) 2019 Depression Screening 07/05/2024 COVID-19 Vaccine ( - 2023-2 5 season) 2025 Influenza Vaccine (#1) 2025 RSV Immunization Adult Patie nts (1 - 1-dose 75+ series) 2044 HIB Vaccines Aged Out No longer eligi [...] age to complete this topic Care Teams Filter Tender Jelly Relationship Specialty Start Date End Date Radha Tran DO PCP - General Internal Medicine 05/13/15
== END 2025-04-17 13:44 | disposition home or self-care (01) ==
LOC: HO.MAMMO 13:43
PROVIDERS: PCP Internal Medicine; Visit Provider Internal Medicine
DX: Z12.31 Encounter for screening mammogram for malignant neoplasm of breast (principal)
CPT/HCPCS: 77063; 77067

== ENCOUNTER → 2025-04-17 14:00 | Outpatient (BNV) | payer OTHER, SELFPAY | PROVIDERS: PCP Internal Medicine; Visit Provider Radiology Body Imaging | DX: Z12.31 Encounter for screening mammogram for malignant neoplasm of breast (principal) | CPT/HCPCS: 77063; 77067 ==

== ENCOUNTER 2025-04-27 12:36 | Outpatient (AMB) | payer OTHER, SELFPAY ==
[2025-04-27 12:38] VITALS: BP 128/78; PULSE 70; TEMP 36.7; O2SAT 96; BMI 31.8
--- NOTE | 2025-04-27 12:38 | MHC.PC.OV ---
Vital Signs 04/27/25 12:38 Height 5 ft 4 in Weight 185 lb BMI 31.8 BP 128/78 Blood Pressure Location Lt brachial Position Sitting Pulse 70 Pulse Source Pulse Oximeter Temp 98.0 F Temp Source Oral Pulse Oximetry (%) 96 Oxygen Delivery Method Room Air Intake Visit Reasons: 6m follow up Allergies No Known Allergies Allergy (Verified 04/27/25 12:39) Medication List - Last Reconciled 04/27/25 by Priya Cortez MD levothyroxine 100 mcg PO DAILY 90 days losartan 50 mg PO DAILY Tobacco use date assessed: 04/27/25 Dental Screening Dental Screen Date: 04/27/25 Did you have a dental visit in the last 12 months?: Yes Did you have a dental problem in the last 6 months where you did not have access to dental care?: No Was dental information given to patient?: Patient has dentist HPI 6m follow up HPI Details History of Present Illness The patient is a 54-year-old female presenting with a follow-up for hypertensive management, inquiry about a colonoscopy, and complaint of burning sensation in legs. Essential Hypertension: - The patient is currently taking Losartan and monitoring blood pressure at home. - Blood pressure has been reported as stable. - Previous blood tests were performed in October, with a recommendation for follow-up blood tests for kidney function. Burning sensation in legs: - The patient reports an intermittent burning sensation in her feet at night. - Symptoms occur some nights and may improve with walking. - The sensation does not appear to worsen consistently but affects her comfort at night. - No prior neurological testing reported by the patient. Colonoscopy appointment: - The patient reports confusion regarding her colonoscopy appointment initially scheduled at [facility]. - The previous colonoscopy was conducted in [address] Lau. - She attempted to secure an appointment but faced issues with communication and information exchange at the hospital. Problem List - Essential Hypertension - Burning sensation in legs - Colonoscopy follow-up Plan - Order a follow-up blood test to monitor kidney function due to the use of antihypertensive medication. - I have Sent a message to the gastroenterology department to inquire about the colonoscopy appointment and facilitate scheduling. - Discuss the burning sensation and recommend a nerve conduction study to evaluate for potential neurological causes. - Administer flu vaccine per patient request. - Schedule a follow-up appointment in October for a physical exam. Review of Systems - General: No fever no chills - Neurological: No headaches no dizziness - Ear nose throat: No sore throat no hearing difficulty no ear pain - Cardiovascular: No syncope, no chest pain, no palpitations - Gastrointestinal: No nausea vomiting or diarrhea - Endocrine: No polyuria polydipsia no heat intolerance - Genitourinary: No dysuria , no blood in urine Physical Exam General: No acute distress HEENT: No acute findings Neck: Supple Respiratory system: Able to talk in full sentences, no audible wheeze Cardiovascular: S1-S2 regular in rate and rhythm Gastrointestinal: No pain Extremities: Burning sensation in feet some nights MEDICAL RECORD ADMINISTRATOR: Alert awake oriented x3 motor intact Skin: Normal turgor [facility] Medical History Right ovarian cyst Surgical History S/P removal of right ovary Family History Father Colon cancer Mother HTN (hypertension) Diabetes mellitus Maternal Aunt Colon cancer Social History Household Members: None Housing: House Alcohol intake: current Alcohol intake frequency: holidays/special occasions only Patient Tobacco Use Status: Never used Tobacco e-Cigarette/Vaping Use: Never Used service: No Current occupational status: employed 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 1. Little interest or pleasure in doing things: not at all 2. Feeling down, depressed, or hopeless: not at all 3. Trouble falling or staying asleep, or sleeping too much: not at all 4. Feeling tired or having little energy: not at all 5. Poor appetite or overeating: not at all 6. Feeling bad about yourself - or that you are a failure or have let yourself or your family down: not at all 7. Trouble concentrating on things, such as reading the newspaper or watching television: not at all 8. Moving or speaking so slowly that other people could have noticed. Or the opposite - being so fidgety or restless that you have been moving around a lot more than usual: not at all 9. Thoughts that you would be better off or of hurting yourself in some way: not at all Total score: 0 Depression Screening Interpretation: Negative Depression Screening Done: Yes 20043 - PHQ-9 Billing: Yes Source: Developed by Drs. Bo Chowdhury, Mikayla Rizvi, Sammy Peñaloza and colleagues, with an educational madison from [employer]. Thrive Questionnaire Date Thrive assessed: 08/01/24 I am a: Patient What is your living situation today?: I have a steady place to live Within the past 12 months, did the food you bought not last and you didn't have the money to get more?: Often true Within the past 12 months, did you worry whether your food would run out before you got money to buy more?: Often true Do you have trouble paying for medicines?: No Do you have trouble getting transportation to medical appointments?: No Do you have trouble paying your heating and electricity bill?: No Do you have trouble taking care of your child, family member or friend?: No Do you have trouble with day-to-day activities such as bathing, preparing meals, shopping, managing finances, etc.?: No Are you currently unemployed and looking for a job?: No Are you interested in more education?: No Please select the resources that you would like help with: None Currently or been in a relationship where the following occur: No concerns reported THRIVE Score: 2 AUDIT C Alcohol Use Questionnaire (AUDIT-C) 1. How often do you have a drink containing alcohol?: Never 3. How often do you have six or more drinks on one occasion?: Never Total Score: 0 PHI-7 AMB Questionnaire PHI-7 Date PHI - 7 assessed: 10/27/24 Feeling nervous, anxious, or on edge: 0 = Not at all Not being able to stop or control worryin = Not at all Worrying too much about different things: 0 = Not at all Trouble relaxin = Not at all Being so restless that it is hard to sit still: 0 = Not at all Becoming easily annoyed or irritable: 0 = Not at all Feeling afraid as if something awful might happen: 0 = Not at all Total PHI-7 score (0-4 normal; 5-9 mild; 10-14 moderate; 15-21 severe): 0 Source: Developed by Drs. Bo Chowdhury, Mikayla Rizvi, Sammy Peñaloza and colleagues, with an educational madison from [employer]. PHI-7 Assessment Billing PHI-7 Assessment Tool: PHI-7 Assessment 81635 Physical exam (Primary Care) Vital Signs: Last Vital Signs Temp 98.0 F 04/27/25 12:38 Pulse 70 04/27/25 12:38 BP 128/78 04/27/25 12:38 Pulse Ox 96 04/27/25 12:38 Oxygen Delivery Method Room Air 04/27/25 12:38 BMI result Body Mass Index 31.8 Tobacco/Smoking Status: Tobacco use Status Tobacco use date assessed 04/27/25 04/27/25 12:41 Patient Tobacco Use Status Never used Tobacco 04/27/25 12:41 e-Cigarette/Vaping Use Never Used 04/27/25 12:41 PHQ-9: PHQ-9 Score PHQ-9: Total score 0 04/27/25 13:53 Depression Screening Interpretation: Negative Thrive Assessment: Date of Thrive Assessment Date Thrive assessed 08/01/24 04/27/25 12:41 Currently or been in a relationship where the following occur: No concerns reported Office Procedures Flu Questionnaire Does the patient have a severe egg allergy?: No Does the patient have severe life threatening allergies?: No Does the patient have a fever or illness today?: No Has the patient ever had Guillain-[place] Syndrome?: No Has the patient ever had any past reaction to a flu shot?: No Immunizations Fluarix [id number] (PF) 45 mcg (15 mcg x 3)/0.5 mL IM syringe Performing Provider: Priya Cortez MD Performing Location: [facility] Administered by: Sandi Riley CMA on 04/27/25 13:13 Dose Route Admin Location Dispensed Lot Number Expiration Date [facility] Senior Clinical Data Analyst 0.5 mL IM Right Deltoid 0.5 mL [id number] 01/01/26 [id number] [employer] VIS Given Date VIS Provided VIS Publication Date 04/27/25 Single Vaccine 24 Eligibility Eligibility Date Funding Source Not [facility] Eligible 04/27/25 Private Coding Level of Care Code Est Pt Level 3 (14083) Diagnoses Hypertension, essential I10 Burning sensation of lower extremity R20.8 Tubular adenoma of colon D12.6 Additional Codes PHQ-9 - 75330 - PHQ-9 Billing: Yes ([id number]) PHI-7 Assessment Billing - PHI-7 Assessment Tool: PHI-7 Assessment 17719 ([id number]) Assessment & Plan Assessment & Plan (1) Hypertension, essential: Code(s): I10 - Essential (primary) hypertension Category: Medical (2) Burning sensation of lower extremity: Code(s): R20.8 - Other disturbances of skin sensation Category: Medical (3) Tubular adenoma of colon: Code(s): D12.6 - Benign neoplasm of colon, unspecified Category: Medical Plan Essential Hypertension: - The patient is currently taking Losartan and monitoring blood pressure at home. - Blood pressure has been reported as stable. - Previous blood tests were performed in October, with a recommendation for follow-up blood tests for kidney function. Burning sensation in legs: - The patient reports an intermittent burning sensation in her feet at night. - Symptoms occur some nights and may improve with walking. - The sensation does not appear to worsen consistently but affects her comfort at night. - No prior neurological testing reported by the patient. Colonoscopy appointment: - The patient reports confusion regarding her colonoscopy appointment initially scheduled at [facility]. - The previous colonoscopy was conducted in [address] Lau. - She attempted to secure an appointment but faced issues with communication and information exchange at the hospital. Problem List - Essential Hypertension - Burning sensation in legs - Colonoscopy follow-up Plan - Order a follow-up blood test to monitor kidney function due to the use of antihypertensive medication. - I have Sent a message to the gastroenterology department to inquire about the colonoscopy appointment and facilitate scheduling. - Discuss the burning sensation and recommend a nerve conduction study to evaluate for potential neurological causes. - Administer flu vaccine per patient request. - Schedule a follow-up appointment in October for a physical exam. Orders: Orders NE electromyogram (EMG) Today R20.8 - Other disturbances of skin sensation Influenza [id number] Immunization 04/27/25 Z23 - Encounter for immunization NE nerve conduction velocity Today R20.8 - Other disturbances of skin sensation
--- OUTSIDE RECORDS SUMMARY | 2025-04-27 14:34 | XMS_ITS | Clinical Summary ---
Author Organization [facility] Address [address] [place] [phone] Phone Care Team Providers Care Information Clerk Name Role Phone Priya Cortez MD Primary Care Provider [phone] Allergies No known active allergies Medications levothyroxine [...] topic Medical Devices Not on file Insurance SPO[employer] POS SPO[employer]ANE POS S[employer] POS Care Teams Information Clerk Relationship Specialty Start Date End Date Priya Cortez MD [facility] [place] [address] PCP - General Internal Medicine 08/11/23 Additional Source Comments The information contained in this document represents components of the legal health record. It is not the complete legal health record.[facility]
--- OUTSIDE RECORDS SUMMARY | 2025-04-27 14:34 | XMS_ITS | Clinical Summary ---
Author Organization [facility] ity Address [address] [place] [address] Care Team Providers Care Ethics Instructor Name Role Phone Radha Tran DO Primary [...] age to complete this topic Care Teams Ethics Instructor Relationship Specialty Start Date End Date Radha Tran DO PCP - General Internal Medicine 05/13/15
== END 2025-04-27 14:17 | disposition home or self-care (01) ==
LOC: HO.HMCC 12:37
PROVIDERS: PCP Internal Medicine; Visit Provider Internal Medicine
DX: Z23 Encounter for immunization (principal)

== ENCOUNTER → 2025-04-27 12:36 | Outpatient (BNVA) | payer OTHER, SELFPAY | PROVIDERS: PCP Internal Medicine; Visit Provider Internal Medicine | DX: I10 Essential (primary) hypertension (principal); R20.8 Other disturbances of skin sensation; D12.6 Benign neoplasm of colon, unspecified; Z23 Encounter for immunization | CPT/HCPCS: 90471; 90656; 96127 ==

== ENCOUNTER 2025-05-01 06:05 | Outpatient (REF) | payer OTHER, SELFPAY ==
--- OUTSIDE RECORDS SUMMARY | 2025-05-01 06:08 | XMS_ITS | Clinical Summary ---
Author Organization [facility] Address [address] [place] [address] Phone Care Team Providers Care Handicapped Teacher Name Role Phone Priya Cortez MD Primary Care Provider [phone] Allergies No known active allergies Medications levothyroxine [...] topic Medical Devices Not on file Insurance [employer] POS U[employer] POS [employer] POS Care Teams Handicapped Teacher Relationship Specialty Start Date End Date Priya Cortez MD [facility] [address] PCP - General Internal Medicine 08/11/23 Additional Source Comments The information contained in this document represents components of the legal health record. It is not the complete legal health record.[facility]
--- OUTSIDE RECORDS SUMMARY | 2025-05-01 06:08 | XMS_ITS | Clinical Summary ---
Author Organization [facility] ity Address [address] [place] [address] Care Team Providers Care Library Supervisor Name Role Phone Radha Tran DO Primary [...] age to complete this topic Care Teams Library Supervisor Relationship Specialty Start Date End Date Radha Tran DO PCP - General Internal Medicine 05/13/15
[2025-05-01 07:54] LABS: Appearance Urine Clear; Glucose Urine UA Negative (Negative); PH 5.5 (5.0-9.0); Specific Gravity - Urine 1.025 (1.005-1.025); UMIC TRIGGER UACC YES
[2025-05-01 08:24] LABS: Alanine Aminotransferase 23 U/L (0-31); Albumin Level 4.4 g/dL (3.5-5.0); Alkaline Phosphatase 83 U/L (39-117); Anion Gap 11 (12-20); Aspartate Amino Transferase 30 U/L (5-31); Blood Urea Nitrogen 29 mg/dL (9-16); Calcium 9.6 mg/dL (8.4-10.2); Carbon Dioxide 27 mmol/L (22-29); Chloride 111 mmol/L (96-108); Cholesterol 149 mg/dL (<200); Estimated Glomerular Filt Rate 51; HDL Cholesterol 58 mg/dL (>40); Potassium 4.6 mmol/L (3.3-5.1); Sodium 144 mmol/L (135-145); Total Protein 7.4 g/dL (6.5-8.0); Triglycerides 129 mg/dL (<150)
== END 2025-05-01 06:06 | disposition home or self-care (01) ==
LOC: HO.LAB 06:05
PROVIDERS: PCP Internal Medicine; Visit Provider Internal Medicine
DX: I10 Essential (primary) hypertension (principal); E03.8 Other specified hypothyroidism; R73.01 Impaired fasting glucose
CPT/HCPCS: 36415; 80053; 80061; 81001; 84443

== ENCOUNTER 2025-05-09 10:38 | Outpatient (REF) | payer OTHER, SELFPAY ==
--- OUTSIDE RECORDS SUMMARY | 2025-05-09 13:27 | XMS_ITS | Clinical Summary ---
Author Organization [facility] Address [address] [place] [address] Phone Care Team Providers Care Devops Developer Name Role Phone Priya Cortez MD Primary Care Provider [phone] Allergies No known active allergies Medications levothyroxine [...] topic Medical Devices Not on file Insurance [employer]AK[employer] POS LAKESIDE POS L[employer] POS Care Teams Devops Developer Relationship Specialty Start Date End Date Priya Cortez MD [facility] [place] [address] PCP - General Internal Medicine 08/11/23 Additional Source Comments The information contained in this document represents components of the legal health record. It is not the complete legal health record.[facility]
[2025-05-09 16:41] LABS: Bacterial Vaginosis PCR NEGATIVE (Negative); Candida Group PCR NOT DETECTED (Not Detect); Candida glab krusei PCR NOT DETECTED (Not Detect); Trichomonas vaginalis PCR NOT DETECTED (Not Detect)
[2025-05-09 17:11] LABS: CT PCR NOT DETECTED (Not Detect.); NG PCR NOT DETECTED (Not Detect.)
== END 2025-05-09 10:39 | disposition home or self-care (01) ==
LOC: HO.LAB 10:38
PROVIDERS: PCP Internal Medicine; Visit Provider Advanced Practice Midwife
DX: Z01.419 Encounter for gynecological examination (general) (routine) without abnormal findings (principal); N90.89 Other specified noninflammatory disorders of vulva and perineum; N89.8 Other specified noninflammatory disorders of vagina; N95.1 Menopausal and female climacteric states; Z20.2 Contact with and (suspected) exposure to infections with a predominantly sexual mode of transmission
CPT/HCPCS: 81515; 87491; 87591

== ENCOUNTER 2025-05-09 10:38 | Outpatient (AMB) | payer OTHER, SELFPAY ==
--- NOTE | 2025-05-09 10:41 | A.OFFVIS_ITS ---
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 Import/Export Specialist concerns: vulvar dryness, irriation, dry w/intimacy at times. Currently sexually active. STI testing offered; she accepts. Attempting to eat a healthy diet with calcium and vitamin D and stays active with exercise. Last pap smear; 2022, negative. Last mammogram; 2024. Colonoscopy is on wait list. Family history of colon cancer. 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 Sexual orientation: Straight/Heterosexual Gender identity: Female Cognitive needs: No Hearing needs: No Vision needs: Yes Female Reproductive History Menstrual Total pregnancies: 2 Full term: 2 Number of Living Children: 2 Date of last pap smear: 03/19/23 (neg pap and hpv) Date of Mammogram: 04/17/25 (Birad 2) Review of Systems Const All systems reviewed & are unremarkable except as noted in HPI and below Reports as per HPI Eyes Reports no additional complaints ENT Reports no additional complaints Card Reports no additional complaints Resp Reports no additional complaints GI Reports as per HPI and Reports no additional complaints Reports as per HPI Musc Reports no additional complaints Skin/Breast Reports as per HPI Neuro Reports no additional complaints Psych Reports no additional complaints Endo Reports no additional complaints Denny/Lymph Reports no additional complaints Aller/Immun Reports no additional complaints Physical Exam Vital Signs: Last Vital Signs BP 110/70 05/09/25 10:42 BMI result Body Mass Index 31.8 Const General: cooperative, healthy appearing, no acute distress, well developed and alert Orientation/consciousness: patient oriented x3 HEENT Head: Yes normal to inspection Eyes General: appearance normal, both eyes and all related structures Neck Neck: Yes normal visual inspection Thyroid: Thyroid normal Chest Chest palpation & inspection: normal inspection of the chest and other (no puckering, dimpling, peau de orange, retraction, discharge, masses) Breast/axilla inspection: normal inspection of the breasts Breast/axilla palpation: normal palpation of the breasts Resp Effort & Inspection: normal respiratory effort GI Inspection: Yes normal to inspection Palpation (GI): Soft to palpation Rectal Exam - Female: deferred General: Yes bladder normal to palpation External Female Exam: normal external appearance and normal appearance of the urethra Speculum Exam - Vagina: normal palpation and vagina atrophic Speculum Exam - Cervix: normal appearance of the cervix and normal palpation Bimanual exam- vagina & uterus: normal bimanual exam, normal palpation, uterine size normal, bladder normal to palpation, normal palpation and non-tender Bimanual Exam- Adnexa, other: no masses Skin General skin exam: no rashes or lesions noted Rashes: no rashes Neuro General: patient oriented x3 Cognition (Neuro): normal cognition Extrem General: Yes normal to inspection Psych Attitude: cooperative Thought process: Normal thought process present Assessment & Plan Assessment & Plan (1) Vaginal dryness, menopausal: Code(s): N95.1 - Menopausal and female climacteric states Category: Medical Plan: Reviewed [id number] self-help remedies for vulvar dryness and examples of products available including Replens moisturizer, vulvar balm, and additionally estrogen topically and intravaginally use. She is not interested in estrogen today and we will review the products in trial follow up as needed p.r.n.. The patient expressed understanding and agreement with the plan of care. All of her questions and concerns were addressed to the best of my ability. (2) Vulvar irritation: Code(s): N90.89 - Other specified noninflammatory disorders of vulva and perineum Category: Medical Plan: GC chlamydia and BV panel obtained await results for final plan of care. (3) Encounter for well woman exam with routine gynecological exam: Code(s): Z01.419 - Encounter for gynecological examination (general) (routine) without abnormal findings Category: Medical Plan Discussed: Current recommendations for pap smears per ASCCP guidelines. Breast awareness, periodic self breast exams and yearly mammogram. Maintain a healthy lifestyle, well balanced diet including Calcium 1,200 mg and Vitamin D 600 IU daily, and routine exercise. Contact the office with any postmenopausal bleeding. Patient verbalizes understanding and agrees to the plan of care. She was given opportunity to ask questions and all questions were answered to the best of my ability. RTO in 1 year for annual human resources director exam. This note is constructed using voice recognition software. While every effort has been made to ensure accuracy, assistant manager trainee errors may have been included. Orders: Orders Bacterial Vaginosis Panel Today N89.8 - Other specified noninflammatory disorders of vagina, N95.1 - Menopausal and female climacteric states CT NG by PCR Vag/Cerv Today N89.8 - Other specified noninflammatory disorders of vagina, N95.1 - Menopausal and female climacteric states Coding Level of Care Code Est Pt Prev Care 40-64y(45467) Diagnoses Vaginal dryness, menopausal N95.1 Vulvar irritation N90.89 Encounter for well woman exam with routine gynecological exam Z01.419
[2025-05-09 10:42] VITALS: BP 110/70; BMI 31.8
--- OUTSIDE RECORDS SUMMARY | 2025-05-09 12:24 | XMS_ITS | Clinical Summary ---
Author Organization [facility] ity Address [address] [place] [address] Care Team Providers Care Water Resources Technical Officer Name Role Phone Radha Tran DO Primary [...] age to complete this topic Care Teams Water Resources Technical Officer Relationship Specialty Start Date End Date Radha Tran DO PCP - General Internal Medicine 05/13/15
== END 2025-05-09 12:19 | disposition home or self-care (01) ==
PROVIDERS: PCP Internal Medicine; Visit Provider Advanced Practice Midwife
DX: Z01.419 Encounter for gynecological examination (general) (routine) without abnormal findings (principal); N95.1 Menopausal and female climacteric states; N90.89 Other specified noninflammatory disorders of vulva and perineum
CPT/HCPCS: 99396; 99459

== ENCOUNTER 2025-05-09 11:07 | Outpatient (REF) | payer OTHER, SELFPAY | END 2025-05-09 11:08 | disposition home or self-care (01) | LOC: HO.LNP 11:07 | PROVIDERS: Visit Provider Advanced Practice Midwife | DX: Z13.89 Encounter for screening for other disorder (principal) ==

== ENCOUNTER 2025-06-19 07:39 | Outpatient (REF) | payer OTHER, SELFPAY ==
--- NOTE | 2025-06-19 07:42 | EMG_ITS ---
Chief complaint: Burning sensation of lower extremity Referred by: Priya Cortez MD Procedure done: Bilateral lower extremity NCS and EMG Bilateral tibial and peroneal motor studies were performed with F responses and tibial H reflexes. Bilateral superficial peroneal and sural sensory studies were performed and needle examination was performed. Findings: Bilateral tibial distal latencies were moderately prolonged. Sensory conduction velocities were mildly prolonged with moderate reduction of amplitude. Impression: Mild sensory and motor somewhat patchy, sensory more than motor, peripheral neuropathy [place]in [address] x2 MTDD
--- OUTSIDE RECORDS SUMMARY | 2025-06-19 07:42 | XMS_ITS | Clinical Summary ---
Author Organization [facility] Address [address] [place] [address] Phone Care Team Providers Care Dry Chain Worker Name Role Phone Priya Cortez MD Primary Care Provider [phone] Allergies No known active allergies Medications levothyroxine [...] topic Medical Devices Not on file Insurance [employer]IVOLA POS TOIVOLA POS TOIV[place]A POS Care Teams Dry Chain Worker Relationship Specialty Start Date End Date Priya Cortez MD [facility] [place] [address] PCP - General Internal Medicine 08/11/23 Additional Source Comments The information contained in this document represents components of the legal health record. It is not the complete legal health record.[facility]
--- OUTSIDE RECORDS SUMMARY | 2025-06-19 07:43 | XMS_ITS | Clinical Summary ---
Author Organization [facility] ity Address [address] [place] [address] Care Team Providers Care Acting Teacher Name Role Phone Radha Tran DO Primary [...] on file Sexual Orientation Not on file Plan of Treatment Health Maintenance Due Date Last Done Comments Breast Cancer Screening 1969 DTaP,Tdap,and Td Vaccines (1 - Tdap) 1988 Hepatitis B Vaccines (1 of 3 - 19+ 3-dose series) 1988 Cervical Cancer Screening: P ap Smear 1990 Pneumococcal Vaccine: 50+ Ye ars (1 of 1 - PCV) 2019 Zoster Vaccines (1 of 2) 2019 Depression Screening 07/05/2024 COVID-19 Vaccine ( - 2024-2 6 season) 2025 Influenza Vaccine (#1) 2025 RSV [...] age to complete this topic Care Teams Acting Teacher Relationship Specialty Start Date End Date Radha Tran DO PCP - General Internal Medicine 05/13/15
== END 2025-06-19 07:40 | disposition home or self-care (01) ==
LOC: HO.NEURO 07:39
PROVIDERS: PCP Internal Medicine; Visit Provider Internal Medicine
DX: R20.8 Other disturbances of skin sensation (principal)
CPT/HCPCS: 95886; 95911

== ENCOUNTER → 2025-06-19 07:42 | Outpatient (BNV) | payer OTHER, SELFPAY | PROVIDERS: PCP Internal Medicine; Visit Provider Psychiatry & Neurology Neurology | DX: R20.8 Other disturbances of skin sensation (principal) | CPT/HCPCS: 95886; 95910 ==

== ENCOUNTER 2025-06-21 08:11 | Outpatient (AMB) | payer OTHER, SELFPAY ==
--- OUTSIDE RECORDS SUMMARY | 2025-06-21 08:27 | XMS_ITS | Clinical Summary ---
Author Organization [facility] Address [address] [place] [id number] Phone Care Team Providers Care Sales Demonstrator Name Role Phone Priya Cortez MD Primary Care Provider [phone] Allergies No known active allergies Medications levothyroxine [...] topic Medical Devices Not on file [place] Care Teams Sales Demonstrator Relationship Specialty Start Date End Date Priya Cortez MD [facility] [place] [address] PCP - General Internal Medicine 08/11/23 Additional Source Comments The information contained in this document represents components of the legal health record. It is not the complete legal health record.[facility]
--- OUTSIDE RECORDS SUMMARY | 2025-06-21 08:28 | XMS_ITS | Clinical Summary ---
Author Organization [facility] it[facility] Address [address] [place] [address] Care Team Providers Care Composition Worker Name Role Phone Radha Tran DO Primary [...] age to complete this topic Care Teams Composition Worker Relationship Specialty Start Date End Date Radha Tran DO PCP - General Internal Medicine 05/13/15
--- NOTE | 2025-06-21 09:24 | A.OFFPC_ITS ---
Intake Visit Reasons: Test results - nerve conduction Allergies No Known Allergies Allergy (Verified 05/09/25 10:41) Medication List - Last Reconciled 06/21/25 by Priya Cortez MD levothyroxine 100 mcg PO DAILY 90 days losartan 50 mg PO DAILY Tobacco use date assessed: 04/27/25 Dental Screening Dental Screen Date: 04/27/25 HPI HPI Comments History of Present Illness Details History of Present Illness The patient is a 55 year old female presenting for a follow-up visit to discuss abnormal lab results and pending referrals. Abnormal kidney function: - A blood test from April 2023 reveale d slightly abnormal kidney function, prompting the need for a repeat test. Peripheral neuropathy: - The patient reports an intermittent bu rning sensation bilaterally from her knees to her feet. - Nerve conduction test confirmed a diag nosis of neuropathy. - The symptoms are not significantly bot hersome at this time. - She denies a history of diabetes, and her last fasting glucose was 95. Preventative Care: Colon Cancer Screening: - The patient is pending a colonoscopy f or screening. - She reports that she was contacted onc e but never received a subsequent call to schedule the appointment. [facility] Medical History Vulvar irritation Right ovarian cyst Surgical History S/P removal of right ovary Family History Father Colon cancer Mother HTN (hypertension) Diabetes mellitus Maternal Aunt Colon cancer Social History Household Members: None Housing: House Alcohol intake: current Alcohol intake frequency: holidays/special occasions only Patient Tobacco Use Status: Never used Tobacco e-Cigarette/Vaping Use: Never Used service: No Current occupational status: employed Current occupation: [employer] Sexual orientation: Straight/Heterosexual Gender identity: Female Cognitive needs: No Hearing needs: No Vision needs: Yes Questionnaire Thrive Questionnaire Date Thrive assessed: 08/01/24 I am a: Patient What is your living situation today?: I have a steady place to live Within the past 12 months, did the food you bought not last and you didn't have the money to get more?: Often true Within the past 12 months, did you worry whether your food would run out before you got money to buy more?: Often true Do you have trouble paying for medicines?: No Do you have trouble getting transportation to medical appointments?: No Do you have trouble paying your heating and electricity bill?: No Do you have trouble taking care of your child, family member or friend?: No Do you have trouble with day-to-day activities such as bathing, preparing meals, shopping, managing finances, etc.?: No Are you currently unemployed and looking for a job?: No Are you interested in more education?: No Please select the resources that you would like help with: None Currently or been in a relationship where the following occur: No concerns reported THRIVE Score: 2 PHI-7 AMB Questionnaire PHI-7 Date PHI - 7 assessed: 10/27/24 Source: Developed by Drs. Bo Chowdhury, Mikayla Rizvi, Sammy Peñaloza and colleagues, with an educational madison from [employer]. Review of Systems Narrative Review of Systems - General: No fever no chills - Neurological: No headaches no dizziness - Ear nose throat: No sore throat no hearing difficulty no ear pain - Cardiovascular: No syncope, no chest pain, no palpitations - Gastrointestinal: No nausea vomiting or diarrhea - Endocrine: No polyuria polydipsia no heat intolerance - Genitourinary: No dysuria , no blood in urine Physical exam (Primary Care) Tobacco/Smoking Status: Tobacco use Status Tobacco use date assessed 04/27/25 04/27/25 12:41 Patient Tobacco Use Status Never used Tobacco 04/27/25 12:41 e-Cigarette/Vaping Use Never Used 04/27/25 12:41 Thrive Assessment: Date of Thrive Assessment Date Thrive assessed 08/01/24 04/27/25 12:41 Currently or been in a relationship where the following occur: No concerns reported Narrative Telehealth Telehealth Telehealth Platform: [facility] Location of provider rendering services: practice address Location of patient: address on file Patient Identification confirmed using: Name, : Yes Telehealth method: video Patient verbally consented to treatment: Yes Patient verbally consented to billing insurance company: Yes Patient informed of any privacy concerns related to visit: Yes Minutes spent on Phone/Video with Pt.: 13 Coding Level of Care Code Tele Est Pt Level 3 (53887) Diagnoses Idiopathic peripheral neuropathy G60.9 Peripheral neuropathy type: idiopathic neuropathy, unspecified Decreased GFR R94.4 Impaired fasting blood sugar R73.01 Other specified hypothyroidism E03.8 Assessment & Plan Assessment & Plan (1) Peripheral neuropathy: Code(s): G62.9 - Polyneuropathy, unspecified Category: Medical Qualifiers: Peripheral neuropathy type: idiopathic neuropathy, unspecified Qualified Code(s): G60.9 - Hereditary and idiopathic neuropathy, unspecified (2) Decreased GFR: Code(s): R94.4 - Abnormal results of kidney function studies Category: Medical (3) Impaired fasting blood sugar: Code(s): R73.01 - Impaired fasting glucose Category: Medical (4) Other specified hypothyroidism: Code(s): E03.8 - Other specified hypothyroidism Category: Medical Plan Problem List - Abnormal kidney function - Peripheral neuropathy - Preventative care: Colon cancer screening Plan - Repeat blood work to re-evaluate kidney function. - The patient was instructed to hydrate well before the blood test. - Check fasting blood glucose; the patient was instructed to fast for 10 hours prior to the test. - The patient was advised to call gastroenterology at [phone] to schedule her pending colonoscopy. - For neuropathy, the plan is to continue monitoring symptoms. The patient was instructed to report if the burning sensation worsens. Orders: Orders [facility] Panel Fast Today E03.8 - Other specified hypothyroidism, R73.01 - Impaired fasting glucose, R94.4 - Abnormal results of kidney function studies Hemoglobin A1c Today E03.8 - Other specified hypothyroidism, R73.01 - Impaired fasting glucose, R94.4 - Abnormal results of kidney function studies
== END 2025-06-21 11:16 | disposition home or self-care (01) ==
LOC: HO.HMCC 08:11
PROVIDERS: PCP Internal Medicine; Visit Provider Internal Medicine
DX: G60.9 Hereditary and idiopathic neuropathy, unspecified (principal); R94.4 Abnormal results of kidney function studies; R73.01 Impaired fasting glucose; E03.8 Other specified hypothyroidism